=== PATIENT | female | born 1945 | race Caucasian/White ===

== ENCOUNTER → 2018-07-19 | Outpatient (CLI) | payer MEDICARE, MEDICAID | LOC: OD 16:04 | PROVIDERS: ATTEND Physician Assistant Medical | DX: N39.0 Urinary tract infection, site not specified (principal); N18.3 Chronic kidney disease, stage 3 (moderate) | CPT/HCPCS: 87086; 87088; 87186 ==

== ENCOUNTER 2019-07-14 14:09 | Inpatient (IN) | payer MEDICARE, MEDICAID ==
--- NOTE | 2019-07-14 14:48 | ER Document Report ---
ED Dizziness/Weakness - General Chief Complaint: Weakness Stated Complaint: WEAKNESS Time Seen by Provider: 07/14/19 14:22 Information source: Patient Notes: Mr. Hairston is a 74-year-old female with PMH of hypertension, hyperlipidemia, seizures, diabetes, depression and gout presenting to the ED for weakness. Patient states she has had some lightheadedness and headache over the past few days. No headache today. She also endorses a cough productive of yellow sputum over the past 2 to 3 days. No fevers but states that she is constantly cold with chills. No chest pain, abdominal pain, nausea, vomiting or diarrhea. She denies any dysuria or increased urinary frequency. No known ill contacts. TRAVEL OUTSIDE OF THE [place] IN LAST 30 DAYS: No - Related Data Allergies/Adverse Reactions: oxycodone HCl [From Percocet] Allergy (Verified 07/14/19 17:38) itching Past Medical History - Social History Smoking Status: Never Smoker Family History: Reviewed & Not Pertinent - Past Medical History Cardiac Medical History: Reports: Hx Hypercholesterolemia, Hx Hypertension Endocrine Medical History: Reports: Hx Diabetes Mellitus Type 2 GI Medical History: Reports: Hx Gastroesophageal Reflux Disease - Immunizations Hx Diphtheria, Pertussis, Tetanus Vaccination: Yes Review of Systems - Review of Systems Constitutional: See HPI EENT: No symptoms reported Cardiovascular: No symptoms reported Respiratory: No symptoms reported Gastrointestinal: No symptoms reported Genitourinary: No symptoms reported Female Genitourinary: See HPI Musculoskeletal: No symptoms reported Skin: No symptoms reported Hematologic/Lymphatic: No symptoms reported Neurological/Psychological: No symptoms reported -: Yes All other systems reviewed and negative Physical Exam - Vital signs Vitals: Temp Resp BP Pulse Ox 98.2 F 14 150/55 H 94 07/14/19 14:37 07/14/19 14:37 07/14/19 14:37 07/14/19 14:37 Interpretation: Normal - General General appearance: Appears well, Alert - HEENT Head: Normocephalic, Atraumatic Eyes: Normal Pupils: PERRL Mucous membranes: Moist - Respiratory Respiratory status: No respiratory distress Chest status: Nontender Breath sounds: Nonproductive cough, Rales - bibasilar Chest palpation: Normal - Cardiovascular Rhythm: Regular Heart sounds: Normal auscultation Murmur: No - Abdominal Inspection: Normal Distension: No distension Bowel sounds: Normal Tenderness: Nontender Organomegaly: No organomegaly - Back Back: Normal, Nontender - Extremities General upper extremity: Normal inspection, Nontender, Normal color, Normal ROM, Normal temperature General lower extremity: Normal inspection, Nontender, Normal color, Normal ROM, Normal temperature, Normal weight bearing. No: Janae's sign - Neurological Neuro grossly intact: Yes Cognition: Normal Orientation: AAOx4 Viraj Coma Scale Eye Opening: Spontaneous [place] Coma Scale Verbal: Oriented Viraj Coma Scale Motor: Obeys Commands [place] Coma Scale Total: 15 Speech: Normal Motor strength normal: LUE, RUE, LLE, RLE Sensory: Normal - Psychological Associated symptoms: Normal affect, Normal mood - Skin Skin Temperature: Warm Skin Moisture: Dry Skin Color: Normal Course - Re-evaluation Re-evalutation: Early well-appearing and nontoxic. Initial vitals within normal limits. Differential diagnosis includes pneumonia, UTI, electrolyte abnormality, dehydration 07/14/19 14:54 07/14/19 17:[address] Jessica Degroot to admit. 17:[address] Lopez, patient accepted to floor. Will see patient soon. - Vital Signs Vital signs: Temp Pulse Resp BP Pulse Ox 97.8 F 63 16 149/79 H 96 07/14/19 19:50 07/14/19 19:50 07/14/19 19:50 07/14/19 19:50 07/14/19 19:50 - Laboratory Result Diagrams: 07/14/19 13:28 07/14/19 13:28 Laboratory results interpreted by me: 07/14/19 07/14/19 07/14/19 13:28 13:28 13:28 RDW 17.6 H Chloride 97 L Carbon Dioxide 32 H BUN 32 H Creatinine 1.89 H Est GFR ( Amer) 31 L Est GFR (MDRD) Non-Af 26 L Glucose 267 H NT-Pro-B Natriuret Pep 2140 H Albumin 3.2 L Urine Protein Urine Blood Urine Nitrite Ur Leukocyte Esterase 07/14/19 15:00 RDW Chloride Carbon Dioxide BUN Creatinine Est GFR ( Amer) Est GFR (MDRD) Non-Af Glucose NT-Pro-B Natriuret Pep Albumin Urine Protein 100 H Urine Blood MODERATE H Urine Nitrite POSITIVE H Ur Leukocyte Esterase MODERATE H - EKG Interpretation by Me EKG shows normal: Sinus rhythm Rate: Normal Heart block present: 1st Degree Discharge - Discharge Clinical Impression: CASSY (acute kidney injury), Dehydration, Declining mobility UTI (urinary tract infection) Qualifiers: Urinary tract infection type: site unspecified Hematuria presence: without hematuria Qualified Code(s): N39.0 - Urinary tract infection, site not specified Condition: Fair Disposition: ADMITTED INPATIENT Admitting Provider: Jessica (Hospitalist) Unit Admitted: Medical Floor
[2019-07-14 14:56] LABS: ABSOLUTE EOSINOPHILS # (AUTO) 0.1 10^3/uL (0.0-0.6); ABSOLUTE LYMPHOCYTES (AUTO) 1.5 10^3/uL (0.5-4.7); ABSOLUTE MONOCYTES (AUTO) 0.9 10^3/uL (0.1-1.4); ABSOLUTE NEUT (AUTO) 6.7 10^3/uL (1.7-8.2); BASOPHILS % (AUTO) 0.3 % (0-2); EOSINOPHILS % (AUTO) 1.3 % (0-6); HEMATOCRIT 37.1 % (36.0-47.0); HEMOGLOBIN 12.2 g/dL (12.0-15.5); LYMPHOCYTES % (AUTO) 15.8 % (13-45); MEAN CORPUSCULAR HEMOGLOBIN 27.4 pg (27.0-33.4); MEAN CORPUSCULAR HGB CONC 32.9 g/dL (32.0-36.0); MEAN CORPUSCULAR VOLUME 83 fl (80-97); MONOCYTES % (AUTO) 9.8 % (3-13); PLATELET COUNT 276 10^3/uL (150-450); RED BLOOD COUNT 4.46 10^6/uL (3.72-5.28); RED CELL DISTRIBUTION WIDTH 17.6 % (11.5-14.0); SEGMENTED NEUTROPHILS % (AUTO) 72.8 % (42-78); TOTAL CELLS COUNTED % (AUTO) 100 %; WHITE BLOOD COUNT 9.2 10^3/uL (4.0-10.5)
[2019-07-14 15:11] LABS: INTERNATIONAL RATION (INR) 1.06; PROTHROMBIN TIME 13.8 SEC (11.4-15.4)
[2019-07-14 15:14] LABS: ALBUMIN 3.2 g/dL (3.5-5.0); ALKALINE PHOSPHATASE 83 U/L (38-126); ANION GAP 11 (5-19); ASPARTATE AMINO TRANSFERASE 23 U/L (14-36); BILIRUBIN,DIRECT 0.4 mg/dL (0.0-0.4); BILIRUBIN,TOTAL 0.4 mg/dL (0.2-1.3); BLOOD UREA NITROGEN 32 mg/dL (7-20); CARBON DIOXIDE 32 mmol/L (22-30); CHLORIDE 97 mmol/L (98-107); CREATINE KINASE 31 U/L (30-135); GLUCOSE 267 mg/dL (75-110); POTASSIUM 3.9 mmol/L (3.6-5.0); TOTAL PROTEIN 7.1 g/dL (6.3-8.2)
[2019-07-14 15:26] LABS: CREATINE KINASE MB 0.46 ng/mL (<4.55); NT PRO BNP 2140 pg/mL (<125); TROPONIN I < 0.012 ng/mL
[2019-07-14 15:43] LABS: APPEARANCE,URINE CLOUDY; BILIRUBIN,URINE NEGATIVE (NEGATIVE); COLOR,URINE AMBER; GLUCOSE, URINE NEGATIVE (NEGATIVE); KETONES,URINE NEGATIVE (NEGATIVE); LEUKOCYTE ESTERASE,URINE MODERATE (NEGATIVE); NITRITE,URINE POSITIVE (NEGATIVE); PROTEIN,URINE 100 mg/dL (NEGATIVE); URINE SPECIFIC GRAVITY 1.015; UROBILINOGEN,URINE NEGATIVE mg/dL (<2.0)
[2019-07-14 15:45] LABS: ADD MANUAL MICROSCOPIC YES
[2019-07-14 15:46] LABS: AMORPHOUS SEDIMENT,UR 1+; BACTERIA,URINE 1+ /HPF; RBC,URINE 0-1 /HPF
--- NOTE | 2019-07-14 15:53 | RADIOLOGY REPORT (SQ) ---
EXAM DESCRIPTION: CHEST 2 VIEWS COMPLETED DATE/TIME: 07/14/2019 3:43 pm REASON FOR STUDY: weakness, crackles at bilat bases COMPARISON: 08/21/2016 TECHNIQUE: Frontal and lateral radiographic views of the chest acquired. NUMBER OF VIEWS: Two view. LIMITATIONS: None. FINDINGS: LUNGS AND PLEURA: No pneumothorax. Mild interstitial prominence, basilar airspace opaciti es and small pleural effusions. MEDIASTINUM AND HILAR STRUCTURES: Stable. HEART AND VASCULAR STRUCTURES: Stable. BONES: No acute findings. HARDWARE: None in the chest. OTHER: No other significant finding. IMPRESSION: Mild interstitial prominence, basilar airspace opacities and small pleural effusions. TECHNICAL DOCUMENTATION: JOB ID: [id number] 2010 [employer]- All Rights Reserved Reading location - IP/workstation name: [email or web address])
--- NOTE | 2019-07-14 16:37 | EKG REPORT ---
SEVERITY:- BORDERLINE ECG - SINUS RHYTHM BORDERLINE T ABNORMALITIES, ANTERIOR LEADS : Confirmed by: Nabeel Li MD 14-Jul-2019 16:37:09
[2019-07-14] MEDS ORDERED: NORMAL SALINE 1000 ML 1,000 ML IV ONE (17:13)
[2019-07-14] MEDS ORDERED: CEFTRIAXONE INJ 1000 MG VIAL IV ONE (17:13)
[2019-07-14] MEDS ORDERED: MAG HYDROX/AL HYDROX/SIMETH SUSP 30 ML UDCUP PO PRN (18:26)
[2019-07-14] MEDS ORDERED: PROMETHAZINE HCL INJ 25 MG/1 ML VIAL IV PRN (18:26)
[2019-07-14] MEDS ORDERED: NORMAL SALINE 1000 ML 1,000 ML IV PRN (18:26)
[2019-07-14] MEDS ORDERED: DEXTROSE 40% GEL 15 GM TUBE PO PRN ×2 (18:37)
[2019-07-14] MEDS ORDERED: DEXTROSE 50%-WATER 25 GM/50 ML DISP.SYRIN IV PRN ×2 (18:37)
[2019-07-14] MEDS ORDERED: GLUCAGON,HUMAN RECOMB 1 MG INJ IM PRN (18:37)
[2019-07-14] MEDS ORDERED: AZITHROMYCIN INJ 500 MG VIAL IV PRN (19:03)
--- NOTE | 2019-07-14 19:03 | ADVANCED CARE ---
Attendance: Discussion was held at the bedside with the patient's sister and 2 of her nieces. Resuscitation Status: Full Code Discussion: The patient has been in a state of decline for the last several weeks. Her UA suggests infection and her chest x-ray suggests failure versus infection. They also report that the patient has been stumbling. She does have a shuffling gait for the past several weeks and tends to lean forward with her walker to the point where they must catch her before she falls. When I asked about CODE STATUS her sister (who would be the next relative in line to make the decision) stated that she could not make the decision. She asked her nieces to help with the decision. They did not care to make a decision at this time and by default made the patient full code. I explained the difference between full code, DNR and comfort measures. I reviewed what actually happens during resuscitation efforts. I discussed the fact that compressions typically break ribs and intubation can be very uncomfortable. We reviewed the patient's current quality of life. It is unfair to see the patient today and assess her quality of life over the last months or years. The did report to me that the patient and her sister were on a cruise to [facility] 4 weeks ago. I did point out that the state of decline can be slow and progressive or other can be an acute decompensation. I reviewed the ability of a living well to set certain parameters such as tracheostomy or not, long-term placement in a senior living facility and use of the PEG tube. The the patient's mother evidently had a PEG tube and the patient's sister remembers that as a very unpleasant situation. At the end of the discussion it was decided that the patient will be a full code for the time being. They would discuss the situation with other family members and try to come to a consensus tomorrow. I did mention that there is a blank copy of [place] living well/healthcare proxy in the admissions packet. I also pointed out that everyone in the room should consider completing sex document for themselves. Care Planning Goals: To determine an appropriate plan of care for this patient including parameters on aggressive care if she were to decline. Document(s) Completed: None Time Spent: 18 minutes
--- NOTE | 2019-07-14 19:06 | RADIOLOGY REPORT (SQ) ---
EXAM DESCRIPTION: VENOUS UNILATERAL LOWER COMPLETED DATE/TIME: 07/14/2019 6:46 pm REASON FOR STUDY: LLE swelling COMPARISON: None. TECHNIQUE: Dynamic and static rawls scale and color images acquired of the left leg venous system. Se lected spectral images acquired with additional compression and augmentation maneuvers. The contralat eral common femoral vein and saphenofemoral junction were also imaged. Images stored on PACS. LIMITATIONS: None. FINDINGS: COMMON FEMORAL: Normal phasicity, compression and augmentation. No visualized echogenic ma terial on rawls scale. No defects on color images. FEMORAL: Normal compression and augmentation. No visualized echogenic material on rawls scale. No defe cts on color images. POPLITEAL: Normal compression, augmentation. No visualized echogenic material on rawls scale. No defec ts on color images. CALF VESSELS: Normal compression, augmentation. No visualized echogenic material on rawls scale. No de fects on color images. GSV and SSV: Normal compression, augmentation. No visualized echogenic material on rawls scale. No def ects on color images. ANY DEEP VENOUS INSUFFICIENCY: Not evaluated. ANY EVIDENCE OF POPLITEAL CYST: No. OTHER: Left lower extremity subcutaneous soft tissue swelling. CONTRALATERAL COMMON FEMORAL VEIN AND SAPHENOFEMORAL JUNCTION: Normal phasicity, compression and augmentation. No visualized echogenic material on rawls scale. No de fects on color images. IMPRESSION: Left lower extremity soft tissue swelling without evidence of DVT or SVT. TECHNICAL DOCUMENTATION: JOB ID: [id number] [employer]- All Rights Reserved Reading location - IP/workstation name: [email or web address]
--- NOTE | 2019-07-14 19:19 | PDOC H&P ---
History of Present Illness Admission Date/PCP: 07/14/19 18:00 Patient complains of: Progressive weakness History of Present Illness: ROBBIN HERNÁNDEZ is a 74 year old female with a past medical history of diabetes mellitus type 2, stage III chronic kidney disease, hypertension, hypercholesterolemia, diabetic neuropathy as well as decreased vision likely related to diabetes. The family also reports hearing loss. The patient evidently was on a cruise to [facility] 4 weeks ago. The family states that since that time she seems to have declined in general. She has exhibited increasing weakness. She has a shuffling gait and the family observes hand tremors. Nils etimes at night she feels like she cannot breathe and asks her sister to turn the fan on. When the fan is on she feels better. Her gait, in addition to shuffling, exhibits a tendency to lean forward despite the walker. At times the family has to catch the patient before she falls. Patient reports that she has been very sleepy. When she speaks it feels like there is a thick tongue and her verbalization is not crisp. Her appetite has only been fair and the family reports that she chokes easily when she eats. In fact a Heimlich maneuver need to be performed several weeks ago. On evaluation the chest x-ray revealed bilateral infiltrates, interstitial prominence and pleural effusions. Ur inalysis suggested urinary tract infection. Unfortunately a urine culture was not ordered. The patient's serum creatinine is slightly greater than her baseline stage III kidney failure. She did not have an elevated white blood cell count and her glucose and brain natruretic peptide were elevated. IV fluids were started in the emergency department and 1 g of ceftriaxone was given. Lastly there was some asymmetric swelling with the left leg being greater than the right. There was some erythema on the left leg. Venous Doppler was ordered. It might also be stasis dermatitis. They have been treating an ulcer on the patient's left heel as well. The patient was referred to the hospital service for admission. Past Medical History Cardiac Medical History: Reports: Hyperlipidema, Hypertension Pulmonary Medical History: Reports: None EENT Medical History: Reports: Eyes - Possible diabetic retinopathy Neurological Medical History: Denies: Ischemic CVA, Migraine, Seizures Endocrine Medical History: Reports: Diabetes Mellitus Type 2 Renal/ Medical History: Reports: Chronic Kidney Disease Malignancy Medical History: Reports: None GI Medical History: Reports: Gastroesophageal Reflux Disease Psychiatric Medical History: Denies: Alcohol Dependency, Substance Abuse, Tobacco Dependency Traumatic Medical History: Reports: None Hematology: Denies: Anemia, Bleeding Tendencies, Heparin Induced Thrombocytopenia Infectious Medical History: Denies: Clostridium Difficile, Methicillin-Resistant Staph Aureus Past Surgical History Past Surgical History: Reports: Cholecystectomy, Hysterectomy, Other - Laser eye treatments Social History Information Source: Patient, Relative - Patient's sister and 2 nieces. Lives with: Family Smoking Status: Former Smoker Electronic Cigarette use?: No Frequency of Alcohol Use: None Hx Recreational Drug Use: No Drugs: None Hx Prescription Drug Abuse: No Past Social History Note: Patient is and has no children - Advance Directive Resuscitation Status: Full Code Surrogate healthcare decision maker:: The patient's sister would be the legal decision maker. The family is going to discuss CODE STATUS to come up with consensus. Family History Family History: CAD Parental Family History Reviewed: Yes Children Family History Reviewed: NA Sibling(s) Family History Reviewed.: Yes Medication/Allergy Home Medications: Aspirin/Dipyridamole [Aggrenox 25 mg/200 mg Capsule SA] 1 cap.sr PO BID 02/10/12 B Complex W-C No.20/Folic Acid [Renal Caps Softgel] 1 cap PO DAILY 08/21/16 Benztropine Mesylate [Cogentin 1 mg Tablet] 1 tab PO QHS #30 tab 08/21/16 Chlorthalidone [Chlorthalidone 25 mg Tablet] 0.5 tab PO DAILY 08/21/16 Febuxostat [Uloric 40 mg Tablet] 40 mg PO DAILY 08/21/16 Levetiracetam [Keppra] 250 mg PO BID #28 tablet 08/21/16 Metoprolol Tartrate 100 mg PO DAILY 08/21/16 Risperidone [Risperdal] 0.25 mg PO RTBID #28 tablet 08/21/16 Rosuvastatin Calcium [Crestor] 40 mg PO DAILY 08/21/16 Allergies/Adverse Reactions: oxycodone HCl [From Percocet] Allergy (Verified 07/14/19 17:38) itching Review of Systems Constitutional: PRESENT: fatigue, weakness. ABSENT: fever(s), headache(s) Eyes: PRESENT: visual disturbances Ears: PRESENT: hearing changes Nose, Mouth, and Throat: ABSENT: headache(s), mouth pain, sore throat Cardiovascular: PRESENT: dyspnea on exertion, edema. ABSENT: chest pain, palpitations Respiratory: PRESENT: dyspnea. ABSENT: cough, sputum Gastrointestinal: PRESENT: dysphagia. ABSENT: abdominal pain, coffee ground emesis, constipation, diarrhea, nausea, vomiting Genitourinary: PRESENT: other - Urinary incontinence. ABSENT: dysuria, hematuria Musculoskeletal: PRESENT: muscle weakness. ABSENT: deformity Integumentary: PRESENT: other - Left diabetic heel ulcer Neurological: PRESENT: abnormal gait, abnormal movements, abnormal speech, lack of coordination, tingling, tremor(s) Psychiatric: ABSENT: anxiety, depression, hallucinations Endocrine: ABSENT: cold intolerance, flushing, heat intolerance, menstrual abnormalities Hematologic/Lymphatic: ABSENT: easy bleeding, easy bruising, lymphadenopathy Allergic/Immunologic: ABSENT: seasonal rhinorrhea Physical Exam Vital Signs: Temp Pulse Resp BP Pulse Ox 98.2 F 14 174/86 H 96 07/14/19 17:01 07/14/19 18:57 07/14/19 18:57 07/14/19 18:57 Intake & Output 07/13/19 07/14/19 07/15/19 07:59 06:59 06:59 Weight 90.9 kg General appearance: PRESENT: cooperative, mild distress, obese, well-developed Head exam: PRESENT: atraumatic, normocephalic Eye exam: PRESENT: conjunctiva pink. ABSENT: scleral icterus Ear exam: PRESENT: normal external ear exam. ABSENT: bleeding, drainage Mouth exam: PRESENT: dry mucosa, tongue midline Neck exam: ABSENT: carotid bruit, lymphadenopathy, thyromegaly Respiratory exam: PRESENT: decreased breath sounds - At bases, rales - Lower lung perez, symmetrical, tachypnea. ABSENT: rhonchi, wheezes Cardiovascular exam: PRESENT: RRR, +S1, +S2 GI/Abdominal exam: PRESENT: diminished bowel sounds, soft. ABSENT: distended, tenderness Rectal exam: PRESENT: deferred Gentrourinary exam: ABSENT: indwelling catheter Extremities exam: PRESENT: other - There was swelling noted in the left leg. There is no pitting edema in the feet. The hands were puffy. Musculoskeletal exam: PRESENT: normal inspection. ABSENT: deformity Neurological exam: PRESENT: alert, awake, oriented to person, oriented to place, oriented to situation Psychiatric exam: PRESENT: flat affect. ABSENT: agitated, anxious Focused psych exam: ABSENT: delusional, restlessness Skin exam: PRESENT: dry, erythema - Distal left leg is red and warm to the touch, warm. ABSENT: jaundice, mottled, rash, skin tears Results Laboratory Results: 07/14/19 13:28 07/14/19 13:28 07/14/19 07/14/19 07/14/19 13:28 13:28 13:28 WBC 9.2 RBC 4.46 Hgb 12.2 Hct 37.1 MCV 83 MCH 27.4 MCHC 32.9 RDW 17.6 H Plt Count 276 Seg Neutrophils % 72.8 Sodium 140.0 Potassium 3.9 Chloride 97 L Carbon Dioxide 32 H Anion Gap 11 BUN 32 H Creatinine 1.89 H Est GFR ( Amer) 31 L Glucose 267 H Lactic Acid Calcium 9.0 Total Bilirubin 0.4 AST 23 Alkaline Phosphatase 83 Total Protein 7.1 Albumin 3.2 L TSH 0.89 Urine Color Urine Appearance Urine pH Ur Specific Noble Urine Protein Urine Glucose (UA) Urine Ketones Urine Blood Urine Nitrite Ur Leukocyte Esterase Ur Squamous Epith Cells 07/14/19 07/14/19 14:45 15:00 WBC RBC Hgb Hct MCV MCH MCHC RDW Plt Count Seg Neutrophils % Sodium Potassium Chloride Carbon Dioxide Anion Gap BUN Creatinine Est GFR ( Amer) Glucose Lactic Acid 0.9 Calcium Total Bilirubin AST Alkaline Phosphatase Total Protein Albumin TSH Urine Color BEATRIZ Urine Appearance CLOUDY Urine pH 5.0 Ur Specific Noble 1.015 Urine Protein 100 H Urine Glucose (UA) NEGATIVE Urine Ketones NEGATIVE Urine Blood MODERATE H Urine Nitrite POSITIVE H Ur Leukocyte Esterase MODERATE H Ur Squamous Epith Cells FEW 07/14/19 07/14/19 13:28 13:28 Creatine Kinase 31 CK-MB (CK-2) 0.46 Troponin I < 0.012 NT-Pro-B Natriuret Pep 2140 H Impressions: Chest X-Ray 07/14/19 14:36 IMPRESSION: Mild interstitial prominence, basilar airspace opacities and small pleural effusions. Assessment and Plan - Diagnosis (1) UTI (urinary tract infection) Qualifiers: Urinary tract infection type: site unspecified Hematuria presence: without hematuria Qualified Code(s): N39.0 - Urinary tract infection, site not specified Is this a current diagnosis for this admission?: Yes Plan: 07/14/2019-urinalysis suggested infection. I have ordered a urine culture. For the time being we will use ceftriaxone. (2) Acute renal failure superimposed on stage 3 chronic kidney disease Qualifiers: Acute renal failure type: unspecified Qualified Code(s): N17.9 - Acute kidney failure, unspecified; N18.3 - Chronic kidney disease, stage 3 (moderate) Is this a current diagnosis for this admission?: Yes Plan: 07/14/2019-the acute on chronic kidney disease could be due to the infection with renal tubular acidosis. The patient was not hypotensive. Blood cultures are pending to rule out bacteremia. I have ordered gentle fluids. She does have small pleural effusions, interstitial prominence and bilateral infiltrates and so I will proceed with care and monitor kidney function. (3) Pneumonia Qualifiers: Pneumonia type: aspiration pneumonia Laterality: bilateral Lung location: unspecified part of lung Is this a current diagnosis for this admission?: Yes Plan: 07/14/2019-with a history of choking with food and bilateral infiltrates aspiration would be potential source of infection. She was [place] a cruise ship several weeks ago. I did order a Legionella antigen study from the urine. She does not have a productive cough and therefore no sputum culture is available. She is on ceftriaxone and azithromycin for community-acquired pneumonia at this time. Pending further results the treatment plan may change. She is not hypoxic at this time. (4) Hypertension Qualifiers: Hypertension type: essential hypertension Qualified Code(s): I10 - Essential (primary) hypertension Is this a current diagnosis for this admission?: Yes Plan: 07/14/2019-we will continue the metoprolol and chlorthalidone. She may need more aggressive diuresis. Will monitor intake and output as well. (5) Hypercholesterolemia Is this a current diagnosis for this admission?: Yes Plan: 07/14/2019-continue statin therapy. We will use atorvastatin in place of rouvastatin. Lipid panel is ordered. (6) Diabetic ulcer of heel Qualifiers: Diabetes mellitus type: type 2 Laterality: left Non-pressure ulcer stage: unspecified non-pressure ulcer stage Qualified Code(s): E11.621 - Type 2 diabetes mellitus with foot ulcer; L97.429 - Non-pressure chronic ulcer of left heel and midfoot with unspecified severity Is this a current diagnosis for this admission?: Yes Plan: 07/14/2019-the patient had to urinate in the psychiatric technician assistant was present to perform venous ultrasound on the left leg. The patient's heel was painful as well. I will assess the stage of the ulcer tomorrow. For now Allevyn foam dressings have been ordered. (7) Diabetes mellitus type 2 in obese Is this a current diagnosis for this admission?: Yes Plan: 07/14/2019-utilize diabetic diet. Continue glimepiride and initiate Accu-Cheks with meals and at bedtime covered with Humalog sliding scale. (9) Diabetic retinopathy Qualifiers: Diabetes mellitus type: type 2 Diabetic retinopathy severity: with unspe cified retinopathy severity Diabetes mellitus macular edema: macular edema presence unspecified Laterality: bilateral Qualified Code(s): E11.319 - Type 2 diabetes mellitus with unspecified diabetic retinopathy without macular edema Is this a current diagnosis for this admission?: Yes Plan: 07/14/2019-family reports that the patient is almost blind from her retinopathy. Will need to take care getting her out of bed. Loss of vision could also be contributing to her poor gait. (10) Declining mobility Is this a current diagnosis for this admission?: Yes Plan: 07/14/2019-as noted above the patient's gait has declined. Family describes it as shuffling. They also describe progressive leaning forward over the walker to the point where they must grab her or she will fall. This could be a combination of neuropathy, retinopathy, weakness and imbalance. She had no resting tremor to suggest Parkinson's disease. Physical therapy has been ordered. (11) Dysphagia Qualifiers: Dysphagia type: unspecified Qualified Code(s): R13.10 - Dysphagia, unspecified Is this a current diagnosis for this admission?: Yes Plan: 07/14/2019-the patient's family reports choking when she is eating. They could not distinguish liquids versus solids. They did report that she required the Heimlich maneuver several weeks ago. I have asked speech therapy to assess the patient. (12) Neurocognitive disorder Is this a current diagnosis for this admission?: Yes Plan: 07/14/2019-the patient's family could not provide details. She is on Latuda and duloxetine. He could be depression or bipolar disorder. The patient's sister stated that she was put on the medicine because she was hearing voices. I will investigate further and request records from her psychiatrist office in the morning. - Plan Summary Summary: 07/14/2019-the patient will be admitted to the medical floor. We will continue her medication regimen with the addition of antibiotics to cover urinary tract infection and suspected pneumonia. Physical therapy and speech therapy have been ordered. She will be on a cardiac/diabetic diet. We will float her heels due to the diabetic heel ulcer. The family is discussing CODE STATUS when a consensus is achieved they will notify me. - Time Time Spent with patient: 35 or more minutes Medications reviewed and adjusted accordingly: Yes - Inpatient Certification Based on my medical assessment, after consideration of the patient's comorbidities, presenting symptoms, or acuity I expect that the services needed warrant INPATIENT care.: Yes I certify that my determination is in accordance with my understanding of Medicare's requirements for reasonable and necessary INPATIENT services [42 CFR 412.3e].: Yes Medical Necessity: Need For IV Fluids, Need for IV Antibiotics Post Hospital Care: D/C Technology Professional Documentation
[2019-07-14] MEDS: ASPIRIN/DIPYRIDAMOLE 25-200 MG 1 CAP.SR CPMP.12HR PO SCH (22:24)
[2019-07-14] MEDS: ATORVASTATIN CALCIUM 80 MG TABLET PO SCH (22:24)
[2019-07-14] MEDS: HEPARIN SOD (PORCINE) 5,000 UNIT/ML 1 ML VIAL SUBCUT SCH (22:25)
[2019-07-14] MEDS: INSULIN LISPRO 100 UNIT/ML 3 ML VIAL SUBCUT SCH (22:25)
[2019-07-14] MEDS ORDERED: AZITHROMYCIN INJ 500 MG VIAL IV ONE (22:44)
[2019-07-14] MEDS: AZITHROMYCIN 500 MG in DEXTROSE 5%-WATER 250 ML IV SCH (23:12)
[2019-07-15] MEDS: PANTOPRAZOLE SODIUM 40 MG TABLET.DR PO SCH (05:06)
[2019-07-15] MEDS: HEPARIN SOD (PORCINE) 5,000 UNIT/ML 1 ML VIAL SUBCUT SCH ×3 (05:06→21:50)
[2019-07-15 06:25] LABS: ABSOLUTE MONOCYTES (AUTO) 0.9 10^3/uL (0.1-1.4); ABSOLUTE NEUT (AUTO) 5.9 10^3/uL (1.7-8.2); HEMOGLOBIN 10.6 g/dL (12.0-15.5); RED BLOOD COUNT 3.92 10^6/uL (3.72-5.28); TOTAL CELLS COUNTED % (AUTO) 100 %; WHITE BLOOD COUNT 8.8 10^3/uL (4.0-10.5)
[2019-07-15 06:31] LABS: ABSOLUTE EOSINOPHILS # (AUTO) 0.1 10^3/uL (0.0-0.6); ABSOLUTE LYMPHOCYTES (AUTO) 1.7 10^3/uL (0.5-4.7); BASOPHILS % (AUTO) 0.5 % (0-2); EOSINOPHILS % (AUTO) 1.7 % (0-6); HEMATOCRIT 32.4 % (36.0-47.0); LYMPHOCYTES % (AUTO) 19.5 % (13-45); MEAN CORPUSCULAR HEMOGLOBIN 27.1 pg (27.0-33.4); MEAN CORPUSCULAR HGB CONC 32.8 g/dL (32.0-36.0); MEAN CORPUSCULAR VOLUME 83 fl (80-97); MONOCYTES % (AUTO) 10.8 % (3-13); PLATELET COUNT 275 10^3/uL (150-450); RED CELL DISTRIBUTION WIDTH 17.6 % (11.5-14.0); SEGMENTED NEUTROPHILS % (AUTO) 67.5 % (42-78)
[2019-07-15 06:42] LABS: ALBUMIN 2.6 g/dL (3.5-5.0); ANION GAP 6 (5-19); BLOOD UREA NITROGEN 28 mg/dL (7-20); CALCIUM 8.8 mg/dL (8.4-10.2); CARBON DIOXIDE 34 mmol/L (22-30); CHLORIDE 98 mmol/L (98-107); GLUCOSE 177 mg/dL (75-110); POTASSIUM 3.2 mmol/L (3.6-5.0); TRIGLYCERIDES 97 mg/dL (<150)
[2019-07-15 06:52] LABS: DIRECT LDL 36 mg/dL (<100)
[2019-07-15] MEDS: INSULIN LISPRO 100 UNIT/ML 3 ML VIAL SUBCUT SCH ×4 (08:27→21:50)
[2019-07-15] MEDS ORDERED: POTASSIUM CHLORIDE 10 MEQ CAPSULE.ER PO ONE (08:30)
[2019-07-15] MEDS ORDERED: CHLORTHALIDONE 25 MG TABLET PO SCH (10:00)
[2019-07-15] MEDS: PREGABALIN 75 MG CAPSULE PO SCH ×2 (10:02→17:16)
[2019-07-15] MEDS: DULOXETINE HCL 30 MG CAPSULE.DR PO SCH (10:02)
[2019-07-15] MEDS: METOPROLOL SUCCINATE 50 MG TAB.SR.24H PO SCH (10:02)
[2019-07-15] MEDS: DOCUSATE SODIUM 100 MG CAPSULE PO SCH ×2 (10:02→17:17)
[2019-07-15] MEDS: GLIMEPIRIDE 4 MG TABLET PO SCH (10:02)
[2019-07-15] MEDS: ASPIRIN/DIPYRIDAMOLE 25-200 MG 1 CAP.SR CPMP.12HR PO SCH ×2 (10:03→21:46)
[2019-07-15] MEDS: FEBUXOSTAT 40 MG TABLET PO SCH (10:03)
[2019-07-15] MEDS: LURASIDONE HCL 40 MG TABLET PO SCH ×2 (10:03→16:45)
[2019-07-15] MEDS: OXYBUTYNIN CHLORIDE 5 MG TABLET PO SCH (11:24)
[2019-07-15] MEDS ORDERED: PROMETHAZINE HCL INJ 25 MG/1 ML VIAL IV PRN (11:30)
--- NOTE | 2019-07-15 12:17 | PDOC PROGRESS REPORT ---
Subjective Progress Note for:: 07/15/19 Subjective:: The patient is resting comfortably in bed. She has no complaints. I do believe that she would be very hard pressed to complain about symptoms based on my encounter yesterday and discussions with the family. She is very hard of hearing and has poor vision. Clearly with developmental delay as answers are somewhat slow and simple. Reason For Visit: UTI,ACUTE ON CHRONIC KIDNEY INJURY,HYPERTENSION, Physical Exam Vital Signs: Temp Pulse Resp BP Pulse Ox 98.8 F 70 16 151/63 H 95 07/15/19 07:58 07/15/19 07:58 07/15/19 07:58 07/15/19 07:58 07/15/19 07:58 Intake & Output 07/14/19 07/15/19 07/16/19 06:59 06:59 06:59 Intake Total 1490 Balance 1490 Weight 90.9 kg General appearance: PRESENT: no acute distress, cooperative, hard of hearing, well-developed Head exam: PRESENT: atraumatic, normocephalic Eye exam: PRESENT: conjunctiva pink. ABSENT: scleral icterus Ear exam: PRESENT: normal external ear exam. ABSENT: bleeding, drainage Respiratory exam: PRESENT: decreased breath sounds - At bases, rhonchi - Faint rhonchi, symmetrical, unlabored. ABSENT: rales, tachypnea, wheezes Cardiovascular exam: PRESENT: RRR, +S1, +S2 GI/Abdominal exam: PRESENT: normal bowel sounds, soft. ABSENT: distended, guarding, tenderness Rectal exam: PRESENT: deferred Extremities exam: PRESENT: pedal edema. ABSENT: joint swelling Musculoskeletal exam: PRESENT: normal inspection. ABSENT: deformity Neurological exam: PRESENT: alert, awake, oriented to person, oriented to place, other - Answers to questions tend to be simple. Hard to know the depth of insight. Psychiatric exam: PRESENT: flat affect. ABSENT: agitated, anxious Skin exam: PRESENT: dry, warm. ABSENT: rash Results Laboratory Results: 07/15/19 05:33 07/15/19 05:33 07/14/19 07/14/19 07/14/19 13:28 13:28 13:28 WBC 9.2 RBC 4.46 Hgb 12.2 Hct 37.1 MCV 83 MCH 27.4 MCHC 32.9 RDW 17.6 H Plt Count 276 Seg Neutrophils % 72.8 Sodium 140.0 Potassium 3.9 Chloride 97 L Carbon Dioxide 32 H Anion Gap 11 BUN 32 H Creatinine 1.89 H Est GFR ( Amer) 31 L Glucose 267 H Lactic Acid Calcium 9.0 Phosphorus Magnesium Total Bilirubin 0.4 AST 23 Alkaline Phosphatase 83 Total Protein 7.1 Albumin 3.2 L Triglycerides Cholesterol LDL Cholesterol Direct VLDL Cholesterol HDL Cholesterol TSH 0.89 Urine Color Urine Appearance Urine pH Ur Specific [place] Urine Protein Urine Glucose (UA) Urine Ketones Urine Blood Urine Nitrite Ur Leukocyte Esterase Ur Squamous Epith Cells 07/14/19 07/14/19 07/15/19 14:45 15:00 05:33 WBC RBC Hgb Hct MCV MCH MCHC RDW Plt Count Seg Neutrophils % Sodium 138.2 Potassium 3.2 L Chloride 98 Carbon Dioxide 34 H Anion Gap 6 BUN 28 H Creatinine 1.65 H Est GFR ( Amer) 37 L Glucose 177 H Lactic Acid 0.9 Calcium 8.8 Phosphorus 4.0 Magnesium 1.8 Total Bilirubin AST Alkaline Phosphatase Total Protein Albumin 2.6 L Triglycerides 97 Cholesterol 68.90 LDL Cholesterol Direct 36 VLDL Cholesterol 19.0 HDL Cholesterol 16 L TSH Urine Color BEATRIZ Urine Appearance CLOUDY Urine pH 5.0 Ur Specific [place] 1.015 Urine Protein 100 H Urine Glucose (UA) NEGATIVE Urine Ketones NEGATIVE Urine Blood MODERATE H Urine Nitrite POSITIVE H Ur Leukocyte Esterase MODERATE H Ur Squamous Epith Cells FEW 07/15/19 05:33 WBC 8.8 RBC 3.92 Hgb 10.6 L Hct 32.4 L MCV 83 MCH 27.1 MCHC 32.8 RDW 17.6 H Plt Count 275 Seg Neutrophils % 67.5 Sodium Potassium Chloride Carbon Dioxide Anion Gap BUN Creatinine Est GFR ( Amer) Glucose Lactic Acid Calcium Phosphorus Magnesium Total Bilirubin AST Alkaline Phosphatase Total Protein Albumin Triglycerides Cholesterol LDL Cholesterol Direct VLDL Cholesterol HDL Cholesterol TSH Urine Color Urine Appearance Urine pH Ur Specific [place] Urine Protein Urine Glucose (UA) Urine Ketones Urine Blood Urine Nitrite Ur Leukocyte Esterase Ur Squamous Epith Cells 07/14/19 07/14/19 13:28 13:28 Creatine Kinase 31 CK-MB (CK-2) 0.46 Troponin I < 0.012 NT-Pro-B Natriuret Pep 2140 H Impressions: Chest X-Ray 07/14/19 14:36 IMPRESSION: Mild interstitial prominence, basilar airspace opacities and small pleural effusions. Venous Doppler Study 07/14/19 17:27 IMPRESSION: Left lower extremity soft tissue swelling without evidence of DVT or SVT. Assessment and Plan - Diagnosis (1) UTI (urinary tract infection) Qualifiers: Urinary tract infection type: site unspecified Hematuria presence: without hematuria Qualified Code(s): N39.0 - Urinary tract infection, site not specified Is this a current diagnosis for this admission?: Yes Plan: 07/14/2019-urinalysis suggested infection. I have ordered a urine culture. For the time being we will use ceftriaxone. 07/15/2019-initial culture results show gram-negative bacilli. We will continue current antibiotic therapy until final identification and sensitivity provided. (2) Acute renal failure superimposed on stage 3 chronic kidney disease Qualifiers: Acute renal failure type: unspecified Qualified Code(s): N17.9 - Acute kidney failure, unspecified; N18.3 - Chronic kidney disease, stage 3 (moderate) Is this a current diagnosis for this admission?: Yes Plan: 07/14/2019-the acute on chronic kidney disease could be due to the infection with renal tubular acidosis. The patient was not hypotensive. Blood cultures are pending to rule out bacteremia. I have ordered gentle fluids. She does have small pleural effusions, interstitial prominence and bilateral infiltrates and so I will proceed with care and monitor kidney function. 07/15/2019-creatinine is slightly better today. She is getting close to baseline. We will monitor intake and output as well. (3) Pneumonia Qualifiers: Pneumonia type: aspiration pneumonia Laterality: bilateral Lung location: unspecified part of lung Is this a current diagnosis for this admission?: Yes Plan: 07/14/2019-with a history of choking with food and bilateral infiltrates aspiration would be potential source of infection. She was [place] a cruise ship [place] weeks ago. I did order a Legionella antigen study from the urine. She does not have a productive cough and therefore no sputum culture is available. She is on ceftriaxone and azithromycin for community-acquired pneumonia at this time. Pending further results the treatment plan may change. She is not hypoxic at this time. 07/15/2019-speech therapy did see the patient. She feels that there is a reasonably safe swallow. Aspiration, although possible, does not likely appear to be the etiology. I was mistaken when obtaining the history and the patient states that she is afraid of water and in fact was not on the cruise to [facility]. Because she was on a cruise ship I did order Legionella antigen. We will continue the current antibiotic regimen at this time. (4) Hypertension Qualifiers: Hypertension type: essential hypertension Qualified Code(s): I10 - Essential (primary) hypertension Is this a current diagnosis for this admission?: Yes Plan: 07/14/2019-we will continue the metoprolol and chlorthalidone. She may need more aggressive diuresis. Will monitor intake and output as well. 07/15/2019-we will continue current medications. Blood pressure was slightly elevated today. I would like to monitor the pressure for 2 to 3 days before making any major changes in her medication regimen. (5) Hypercholesterolemia Is this a current diagnosis for this admission?: Yes Plan: 07/14/2019-continue statin therapy. We will use atorvastatin in place of rouvastatin. Lipid panel is ordered. 07/15/2019-continue statin therapy. Lipid panel reveals excellent control. Possibly may even consider decreasing statin therapy slightly. (6) Diabetic ulcer of heel Qualifiers: Diabetes mellitus type: type 2 Laterality: left Non-pressure ulcer stage: limited to breakdown of skin Qualified Code(s): E11.621 - Type 2 diabetes mellitus with foot ulcer; L97.421 - Non-pressure chronic ulcer of left heel and midfoot limited to breakdown of skin Is this a current diagnosis for this admission?: Yes Plan: 07/14/2019-the patient had to urinate in the technical communicator was present to perform venous ultrasound on the left leg. The patient's heel was painful as well. I will assess the stage of the ulcer tomorrow. For now Allevyn foam dressings have been ordered. 07/15/2019-the heel ulcer is slightly lateral. The tissue is darkly discolored. There is at least breakdown of the skin. There is likely deeper tissue damage but it is impossible to tell. At this point I will not debride the lesion further. We will continue conservative care. I will order Santyl applications to help remove some of the nonviable tissue. (7) Diabetes mellitus type 2 in obese Is this a current diagnosis for this admission?: Yes Plan: 07/14/2019-utilize diabetic diet. Continue glimepiride and initiate Accu-Cheks with meals and at bedtime covered with Humalog sliding scale. 07/15/2019-hemoglobin A1c was 9.6%. Continue current regimen. We may need to adjust her baseline regimen of glimepiride for better control. (8) Diabetic neuropathy Qualifiers: Diabetes mellitus type: type 2 Diabetes mellitus complication detail: d iabetic polyneuropathy Qualified Code(s): E11.42 - Type 2 diabetes mellitus with diabetic polyneuropathy Is this a current diagnosis for this admission?: Yes Plan: 07/15/2019-continue Lyrica. The patient is also on duloxetine. She may also be on this medication for depression. (9) Diabetic retinopathy Qualifiers: Diabetes mellitus type: type 2 Diabetic retinopathy severity: with unspecified retinopathy severity Diabetes mellitus macular edema: macular edema presence unspecified Laterality: bilateral Qualified Code(s): E11.319 - Type 2 diabetes mellitus with unspecified diabetic retinopathy without macular edema Is this a current diagnosis for this admission?: Yes Plan: 07/14/2019-family reports that the patient is almost blind from her retinopathy. Will need to take care getting her out of bed. Loss of vision could also be contributing to her poor gait. 07/15/2019-family reports that the patient has had multiple laser treatments. I believe she has maxed out on the therapy. Again tried to be in her visual field when communicating. (10) Declining mobility Is this a current diagnosis for this admission?: Yes Plan: 07/14/2019-as noted above the patient's gait has declined. Family describes it as shuffling. They also describe progressive leaning forward over the walker to the point where they must grab her or she will fall. This could be a combination of neuropathy, retinopathy, weakness and imbalance. She had no resting tremor to suggest Parkinson's disease. Physical therapy has been ordered. 07/15/2019-physical therapy will be evaluating the patient. (11) Dysphagia Qualifiers: Dysphagia type: oral phase Qualified Code(s): R13.11 - Dysphagia, oral phase Is this a current diagnosis for this admission?: Yes Plan: 07/14/2019-the patient's family reports choking when she is eating. They could not distinguish liquids versus solids. They did report that she required the Heimlich maneuver several weeks ago. I have asked speech therapy to assess the patient. 07/15/2019-speech therapy did see the patient. The dysphagia is most likely due to her edentulous state and not having dentures that fit properly. We are going to change the texture of her diet. There was no cough with thin liquids. We believe that with change in the texture of the diet she will do much better. (12) Neurocognitive disorder Is this a current diagnosis for this admission?: Yes Plan: 07/14/2019-the patient's family could not provide details. She is on Latuda and duloxetine. He could be depression or bipolar disorder. The patient's sister stated that she was put on the medicine because she was hearing voices. I will investigate further and request records from her psychiatrist office in the morning. 07/15/2019-we will try to get more details from the family. We will continue the Latuda and duloxetine for the time being. - Plan Summary Summary: 07/14/2019-the patient will be admitted to the medical floor. We will continue her medication regimen with the addition of antibiotics to cover urinary tract infection and suspected pneumonia. Physical therapy and speech therapy have b een ordered. She will be on a cardiac/diabetic diet. We will float her heels due to the diabetic heel ulcer. The family is discussing CODE STATUS when a consensus is achieved they will notify me. - Time Time Spent with patient: 15-24 minutes Medications reviewed and adjusted accordingly: Yes
[2019-07-15] MEDS: CEFTRIAXONE 1 GM/D5W RTU 1 GM/50 ML RTUPB IV SCH (17:17)
[2019-07-15] MEDS: COLLAGENASE CLOSTRIDIUM HIST. OINT 30 GM TP SCH (17:46)
[2019-07-15] MEDS: ACETAMINOPHEN 325 MG TABLET PO PRN (20:24)
[2019-07-15] MEDS: ATORVASTATIN CALCIUM 80 MG TABLET PO SCH (21:46)
[2019-07-15] MEDS: AZITHROMYCIN 500 MG in DEXTROSE 5%-WATER 250 ML IV SCH (21:47)
[2019-07-15] MEDS ORDERED: MORPHINE SULFATE 10 MG/ML INJ IV ONE (23:00)
[2019-07-16] MEDS: ACETAMINOPHEN 325 MG TABLET PO PRN ×2 (04:05→10:40)
[2019-07-16 05:41] LABS: ABSOLUTE BASOPHILS # (AUTO) 0.1 10^3/uL (0.0-0.2); ABSOLUTE EOSINOPHILS # (AUTO) 0.2 10^3/uL (0.0-0.6); ABSOLUTE LYMPHOCYTES (AUTO) 2.7 10^3/uL (0.5-4.7); ABSOLUTE MONOCYTES (AUTO) 1.1 10^3/uL (0.1-1.4); ABSOLUTE NEUT (AUTO) 5.1 10^3/uL (1.7-8.2); BASOPHILS % (AUTO) 0.7 % (0-2); EOSINOPHILS % (AUTO) 2.1 % (0-6); HEMOGLOBIN 11.2 g/dL (12.0-15.5); LYMPHOCYTES % (AUTO) 29.4 % (13-45); MEAN CORPUSCULAR HEMOGLOBIN 27.4 pg (27.0-33.4); MEAN CORPUSCULAR VOLUME 83 fl (80-97); PLATELET COUNT 283 10^3/uL (150-450); RED CELL DISTRIBUTION WIDTH 17.8 % (11.5-14.0); SEGMENTED NEUTROPHILS % (AUTO) 55.8 % (42-78); TOTAL CELLS COUNTED % (AUTO) 100 %; WHITE BLOOD COUNT 9.2 10^3/uL (4.0-10.5)
[2019-07-16] MEDS: PANTOPRAZOLE SODIUM 40 MG TABLET.DR PO SCH (06:03)
[2019-07-16] MEDS: HEPARIN SOD (PORCINE) 5,000 UNIT/ML 1 ML VIAL SUBCUT SCH ×3 (06:03→22:36)
[2019-07-16 06:34] LABS: ALBUMIN 2.6 g/dL (3.5-5.0); ANION GAP 6 (5-19); BLOOD UREA NITROGEN 27 mg/dL (7-20); CALCIUM 8.9 mg/dL (8.4-10.2); CARBON DIOXIDE 35 mmol/L (22-30); CHLORIDE 101 mmol/L (98-107); GLUCOSE 111 mg/dL (75-110); PHOSPHORUS 4.1 mg/dL (2.5-4.5); POTASSIUM 3.6 mmol/L (3.6-5.0)
[2019-07-16] MEDS: INSULIN LISPRO 100 UNIT/ML 3 ML VIAL SUBCUT SCH ×4 (08:35→22:36)
[2019-07-16] MEDS: LURASIDONE HCL 40 MG TABLET PO SCH ×2 (08:43→18:30)
[2019-07-16] MEDS ORDERED: COLLAGENASE CLOSTRIDIUM HIST. OINT 30 GM TP SCH (10:00)
[2019-07-16] MEDS: COLLAGENASE CLOSTRIDIUM HIST. OINT 30 GM TP SCH (10:35)
[2019-07-16] MEDS: DULOXETINE HCL 30 MG CAPSULE.DR PO SCH (10:36)
[2019-07-16] MEDS: PREGABALIN 75 MG CAPSULE PO SCH ×2 (10:36→18:31)
[2019-07-16] MEDS: METOPROLOL SUCCINATE 50 MG TAB.SR.24H PO SCH (10:37)
[2019-07-16] MEDS: AMLODIPINE BESYLATE 10 MG TABLET PO SCH (10:37)
[2019-07-16] MEDS: FEBUXOSTAT 40 MG TABLET PO SCH (10:37)
[2019-07-16] MEDS: DOCUSATE SODIUM 100 MG CAPSULE PO SCH ×2 (10:38→18:30)
[2019-07-16] MEDS: ASPIRIN/DIPYRIDAMOLE 25-200 MG 1 CAP.SR CPMP.12HR PO SCH ×2 (10:38→22:36)
[2019-07-16] MEDS: OXYBUTYNIN CHLORIDE 5 MG TABLET PO SCH (10:38)
[2019-07-16] MEDS: POTASSIUM CHLORIDE 10 MEQ CAPSULE.ER PO SCH (10:38)
[2019-07-16] MEDS: GLIMEPIRIDE 4 MG TABLET PO SCH (10:39)
--- NOTE | 2019-07-16 10:49 | RADIOLOGY REPORT (SQ) ---
EXAM DESCRIPTION: CHEST SINGLE VIEW COMPLETED DATE/TIME: 07/16/2019 10:27 am REASON FOR STUDY: assess for congestion COMPARISON: 07/14/2019 EXAM PARAMETERS: NUMBER OF VIEWS: One view. TECHNIQUE: Single frontal radiographic view of the chest acquired. RADIATION DOSE: NA LIMITATIONS: None. FINDINGS: LUNGS AND PLEURA: Minimal ill-defined left retrocardiac opacities. No dense consolidation . No masses or pneumothorax. No pleural effusion. No edema. MEDIASTINUM AND HILAR STRUCTURES: No masses. Contour normal. HEART AND VASCULAR STRUCTURES: Heart normal in size. Aortic atherosclerosis. BONES: No acute findings. HARDWARE: None in the chest. OTHER: No other significant finding. IMPRESSION: Minimal ill-defined left retrocardiac opacity possibly atelectasis or developing infecti on, stable. No dense consolidation. No significant effusion or overt edema. TECHNICAL DOCUMENTATION: JOB ID: [id number] [employer]- All Rights Reserved Reading location - IP/workstation name: [email or web address]
--- NOTE | 2019-07-16 13:27 | PDOC PROGRESS REPORT ---
Subjective Progress Note for:: 07/16/19 Subjective:: This is 74-year-old female who initially presented with weakness and was admitted for UTI, acute on chronic renal failure and possible pneumonia. No acute event overnight. Patient denies acute complaints. Blood pressures running in the 170 systolic. Creatinine slightly trended up today. Urine culture is growing gram-negative rods. Reason For Visit: UTI,ACUTE ON CHRONIC KIDNEY INJURY,HYPERTENSION, Physical Exam Vital Signs: Temp Pulse Resp BP Pulse Ox 97.6 F 59 L 17 181/61 H 97 07/16/19 07:25 07/16/19 07:25 07/16/19 07:25 07/16/19 07:25 07/16/19 07:25 Intake & Output 07/15/19 07/16/19 07/17/19 06:59 06:59 06:59 Intake Total 1490 780 Balance 1490 780 Weight 200 lb 6.403 oz 202 lb 13.204 oz General appearance: PRESENT: no acute distress, well-developed, well-nourished Head exam: PRESENT: atraumatic, normocephalic Eye exam: PRESENT: conjunctiva pink, EOMI, PERRLA. ABSENT: scleral icterus Ear exam: PRESENT: normal external ear exam Mouth exam: PRESENT: moist, tongue midline Neck exam: ABSENT: carotid bruit, JVD, lymphadenopathy, thyromegaly Respiratory exam: ABSENT: rales, rhonchi, wheezes Cardiovascular exam: PRESENT: RRR. ABSENT: diastolic murmur, rubs, systolic murmur Pulses: PRESENT: normal dorsalis pedis pul GI/Abdominal exam: PRESENT: normal bowel sounds, soft. ABSENT: distended, guarding, mass, organolmegaly, rebound, tenderness Rectal exam: PRESENT: deferred Neurological exam: PRESENT: alert, awake, oriented to person, oriented to place, CN II-XII grossly intact. ABSENT: motor sensory deficit Results Laboratory Results: 07/16/19 04:14 07/16/19 04:14 07/16/19 07/16/19 04:14 04:14 WBC 9.2 RBC 4.10 Hgb 11.2 L Hct 34.0 L MCV 83 MCH 27.4 MCHC 33.0 RDW 17.8 H Plt Count 283 Seg Neutrophils % 55.8 Sodium 142.4 Potassium 3.6 Chloride 101 Carbon Dioxide 35 H Anion Gap 6 BUN 27 H Creatinine 1.92 H Est GFR ( Amer) 31 L Glucose 111 H Calcium 8.9 Phosphorus 4.1 Magnesium 1.7 Albumin 2.6 L 07/14/19 07/14/19 13:28 13:28 Creatine Kinase 31 CK-MB (CK-2) 0.46 Troponin I < 0.012 NT-Pro-B Natriuret Pep 2140 H Impressions: Chest X-Ray 07/14/19 14:36 IMPRESSION: Mild interstitial prominence, basilar airspace opacities and small pleural effusions. Venous Doppler Study 07/14/19 17:27 IMPRESSION: Left lower extremity soft tissue swelling without evidence of DVT or SVT. Assessment and Plan - Diagnosis (1) UTI (urinary tract infection) Qualifiers: Urinary tract infection type: site unspecified Hematuria presence: without hematuria Qualified Code(s): N39.0 - Urinary tract infection, site not specified Is this a current diagnosis for this admission?: Yes Plan: Urine culture is growing gram-negative rods. Continue Rocephin. (2) Acute renal failure superimposed on stage 3 chronic kidney disease Qualifiers: Acute renal failure type: unspecified Qualified Code(s): N17.9 - Acute kidney failure, unspecified; N18.3 - Chronic kidney disease, stage 3 (moderate) Is this a current diagnosis for this admission?: Yes Plan: Creatinine slightly trended up to 1.9 today from 1.6. Switch chlorthalidone to amlodipine. Her first chest x-ray shows possible mild pulmonary congestion. Repeat chest x-ray. Will restart on gentle hydration pending chest x-ray results. (3) Diabetic ulcer of heel Qualifiers: Diabetes mellitus type: type 2 Laterality: left Non-pressure ulcer stage: limited to breakdown of skin Qualified Code(s): E11.621 - Type 2 diabetes mellitus with foot ulcer; L97.421 - Non-pressure chronic ulcer of left heel and midfoot limited to breakdown of skin Is this a current diagnosis for this admission?: Yes Plan: Continue daily wound care. (4) Hypertension Qualifiers: Hypertension type: essential hypertension Qualified Code(s): I10 - Essential (primary) hypertension Is this a current diagnosis for this admission?: Yes Plan: Continue metoprolol. Switch chlorthalidone to amlodipine. (5) Pneumonia Qualifiers: Pneumonia type: aspiration pneumonia Laterality: bilateral Lung location: unspecified part of lung Is this a current diagnosis for this admission?: Yes Plan: Continue Rocephin. There was initial concern for aspiration pneumonia due to her swallowing issues. She was evaluated by speech therapy. Her swallowing issues were more deemed to be related to her edentulous state. - Time Time Spent with patient: 25-34 minutes
[2019-07-16] MEDS: NYSTATIN TOPICAL POWDER 15 GM TP SCH ×2 (14:46→22:37)
--- NOTE | 2019-07-16 14:49 | XCELERA REPORT ---
[address] [address] Transthoracic Echocardiogram Report Name: ROBBIN HERNÁNDEZ Age: 74 yrs Gender: Female : 1945 Patient Status: Inpatient Patient Location: [address] [place], [place] [address] Study Date: 07/15/2019 02:37 PM Height: 62 in Weight: 200 lb BSA: 1.9 m2 Procedure: A two-dimensional transthoracic echocardiogram with color flow and Doppler was performed. The study was technically difficult with many images being suboptimal in quality. Reason For Study: Suspect heart failure History: Heart failure. Ordering Physician: ORLANDO GU Performed By: Rosy Salazar Interpretation Summary The left ventricle is normal in size. There is normal left ventricular wall thickness. LV EF is > than 60% Left ventricular systolic function is normal. Doppler measurements suggest impaired left ventricular relaxation, which is associated with grade I/IV or mild diastolic dysfunction The left ventricular wall motion is normal. There is no thrombus. Cannot assess ASD,VSD,or PFO. The right ventricle is grossly normal size. The right ventricle is not well visualized secondary to technical limitations The right atrium is normal. The left atrial size is normal. There is no evidence of mitral valve prolapse. There is no vegetation seen on the mitral valve. There is no mitral valve stenosis. There is a trace amount of mitral regurgitation There is no aortic valvular vegetation. There is no aortic valve stenosis There is no LVOT obstruction. No aortic regurgitation is present. There is no tricuspid stenosis. There is a trace amount of tricuspid regurgitation Right ventricular systolic pressure is normal. RVSP is 30 mm of Hg , with RA mean of 10. There is no pulmonic valvular stenosis. There is no pulmonic valvular regurgitation. The aortic root is not well visualized but is probably normal size. The inferior vena cava was not visualized There is no pericardial effusion. MMode/2D Measurements & Calculations RVDd: 2.9 cm LVIDd: 4.5 cm FS: 37.4 % Ao root diam: 2.4 cm IVSd: 0.98 cm LVIDs: 2.8 cm EDV(Teich): 90.4 ml Ao root area: 4.4 cm2 LVPWd: 1.1 cm ESV(Teich): 29.4 ml LA dimension: 3.5 cm EF(Teich): 67.5 % Doppler Measurements & Calculations MV E max rosangela: MV P1/2t max rosangela: Ao V2 max: LV V1 max P.6 cm/sec 104.6 cm/sec 72.4 cm/sec 3.7 mmHg MV A max rosangela: MV P1/2t: 94.3 msec Ao max P.1 mmHgLV V1 max: 127.8 cm/sec MVA(P1/2t): 2.3 cm2 95.4 cm/sec MV E/A: 0.82 MV dec slope: 325.0 cm/sec2 MV dec time: 0.32 sec PA V2 max: TR max rosangela: MV P1/2t-pr_phl: 78.0 cm/sec 223.0 cm/sec 94.3 msec PA max P.4 mmHg TR max P.9 mmHg Left Ventricle The left ventricle is normal in size. There is normal left ventricular wall thickness. LV EF is > than 60%. Left ventricular systolic function is normal. Doppler measurements suggest impaired left ventricular relaxation, which is associated with grade I/IV or mild diastolic dysfunction. The left ventricular wall motion is normal. There is no thrombus. Cannot assess ASD,VSD,or PFO. Right Ventricle The right ventricle is grossly normal size. The right ventricle is not well visualized secondary to technical limitations. Atria The right atrium is normal. The left atrial size is normal. Mitral Valve There is no evidence of mitral valve prolapse. There is no vegetation seen on the mitral valve. There is no mitral valve stenosis. There is a trace amount of mitral regurgitation. Aortic Valve There is no aortic valvular vegetation. There is no aortic valve stenosis. There is no LVOT obstruction. No aortic regurgitation is present. Tricuspid Valve There is no tricuspid stenosis. There is a trace amount of tricuspid regurgitation. Right ventricular systolic pressure is normal. RVSP is 30 mm of Hg , with RA mean of 10. Pulmonic Valve There is no pulmonic valvular stenosis. There is no pulmonic valvular regurgitation. Great Vessels The aortic root is not well visualized but is probably normal size. The inferior vena cava was not visualized. Effusions There is no pericardial effusion. : ORLANDO GU Lakshmi
[2019-07-16] MEDS: CEFTRIAXONE 1 GM/D5W RTU 1 GM/50 ML RTUPB IV SCH (18:41)
[2019-07-16] MEDS: AZITHROMYCIN 500 MG in DEXTROSE 5%-WATER 250 ML IV SCH (22:35)
[2019-07-16] MEDS: ATORVASTATIN CALCIUM 80 MG TABLET PO SCH (22:35)
[2019-07-17] MEDS: HEPARIN SOD (PORCINE) 5,000 UNIT/ML 1 ML VIAL SUBCUT SCH ×3 (06:02→21:59)
[2019-07-17] MEDS: NYSTATIN TOPICAL POWDER 15 GM TP SCH ×3 (06:02→21:58)
[2019-07-17] MEDS: PANTOPRAZOLE SODIUM 40 MG TABLET.DR PO SCH (06:02)
[2019-07-17 06:41] LABS: ABSOLUTE EOSINOPHILS # (AUTO) 0.2 10^3/uL (0.0-0.6); ABSOLUTE LYMPHOCYTES (AUTO) 1.9 10^3/uL (0.5-4.7); ABSOLUTE MONOCYTES (AUTO) 0.7 10^3/uL (0.1-1.4); ABSOLUTE NEUT (AUTO) 4.2 10^3/uL (1.7-8.2); BASOPHILS % (AUTO) 0.7 % (0-2); EOSINOPHILS % (AUTO) 2.3 % (0-6); HEMATOCRIT 33.7 % (36.0-47.0); HEMOGLOBIN 11.1 g/dL (12.0-15.5); LYMPHOCYTES % (AUTO) 27.2 % (13-45); MEAN CORPUSCULAR HEMOGLOBIN 27.2 pg (27.0-33.4); MEAN CORPUSCULAR HGB CONC 32.9 g/dL (32.0-36.0); MEAN CORPUSCULAR VOLUME 83 fl (80-97); MONOCYTES % (AUTO) 9.6 % (3-13); PLATELET COUNT 292 10^3/uL (150-450); RED BLOOD COUNT 4.08 10^6/uL (3.72-5.28); RED CELL DISTRIBUTION WIDTH 17.6 % (11.5-14.0); SEGMENTED NEUTROPHILS % (AUTO) 60.2 % (42-78); TOTAL CELLS COUNTED % (AUTO) 100 %
[2019-07-17 07:06] LABS: ALBUMIN 2.6 g/dL (3.5-5.0); ANION GAP 10 (5-19); BLOOD UREA NITROGEN 26 mg/dL (7-20); CALCIUM 8.7 mg/dL (8.4-10.2); CARBON DIOXIDE 31 mmol/L (22-30); CHLORIDE 103 mmol/L (98-107); GLUCOSE 84 mg/dL (75-110); PHOSPHORUS 4.6 mg/dL (2.5-4.5); POTASSIUM 3.8 mmol/L (3.6-5.0)
[2019-07-17] MEDS: INSULIN LISPRO 100 UNIT/ML 3 ML VIAL SUBCUT SCH ×4 (08:45→21:59)
[2019-07-17] MEDS: COLLAGENASE CLOSTRIDIUM HIST. OINT 30 GM TP SCH (09:09)
[2019-07-17] MEDS: METOPROLOL SUCCINATE 50 MG TAB.SR.24H PO SCH (09:09)
[2019-07-17] MEDS: PREGABALIN 75 MG CAPSULE PO SCH ×2 (09:10→17:00)
[2019-07-17] MEDS: FEBUXOSTAT 40 MG TABLET PO SCH (09:10)
[2019-07-17] MEDS: DULOXETINE HCL 30 MG CAPSULE.DR PO SCH (09:10)
[2019-07-17] MEDS: ASPIRIN/DIPYRIDAMOLE 25-200 MG 1 CAP.SR CPMP.12HR PO SCH ×2 (09:10→21:57)
[2019-07-17] MEDS: POTASSIUM CHLORIDE 10 MEQ CAPSULE.ER PO SCH (09:10)
[2019-07-17] MEDS: OXYBUTYNIN CHLORIDE 5 MG TABLET PO SCH (09:10)
[2019-07-17] MEDS: DOCUSATE SODIUM 100 MG CAPSULE PO SCH ×2 (09:10→17:00)
[2019-07-17] MEDS: AMLODIPINE BESYLATE 10 MG TABLET PO SCH (09:10)
[2019-07-17] MEDS: LURASIDONE HCL 40 MG TABLET PO SCH ×2 (09:11→16:58)
[2019-07-17] MEDS: GLIMEPIRIDE 4 MG TABLET PO SCH (09:11)
[2019-07-17] MEDS: ACETAMINOPHEN 325 MG TABLET PO PRN ×2 (10:35→21:57)
--- NOTE | 2019-07-17 16:34 | PDOC PROGRESS REPORT ---
Subjective Progress Note for:: 07/17/19 Subjective:: This is 74-year-old female who initially presented with weakness and was admitted for UTI, acute on chronic renal failure and possible pneumonia. 07/16: Patient denies acute complaints. Blood pressures running in the 170 systolic. Creatinine slightly trended up today. Urine culture is growing gram- negative rods. 07/17: No acute event overnight. Blood pressures have improved. She denies acute complaints. She was evaluated by physical therapy, required some as sistance but did fairly well using a walker. Plan is possible discharge with home health and home PT soon however patient's family/sister could not be contacted in the past 2 days. Discussed with discharge planning may need assistance from APS. Reason For Visit: UTI,ACUTE ON CHRONIC KIDNEY INJURY,HYPERTENSION, Physical Exam Vital Signs: Temp Pulse Resp BP Pulse Ox 98.4 F 67 20 145/59 H 95 07/17/19 11:34 07/17/19 11:34 07/17/19 11:34 07/17/19 11:34 07/17/19 11:34 Intake & Output 07/16/19 07/17/19 07/18/19 06:59 06:59 06:59 Intake Total 780 1479 722 Output Total 1400 400 Balance 780 79 322 Weight 202 lb 13.204 oz 208 lb 12.444 oz General appearance: PRESENT: no acute distress, well-developed, well-nourished Head exam: PRESENT: atraumatic, normocephalic Eye exam: PRESENT: conjunctiva pink, EOMI, PERRLA. ABSENT: scleral icterus Ear exam: PRESENT: normal external ear exam Mouth exam: PRESENT: moist, tongue midline Neck exam: ABSENT: carotid bruit, JVD, lymphadenopathy, thyromegaly Respiratory exam: PRESENT: clear to auscultation leobardo. ABSENT: rales, rhonchi, wheezes Cardiovascular exam: PRESENT: RRR. ABSENT: diastolic murmur, rubs, systolic murmur Pulses: PRESENT: normal dorsalis pedis pul GI/Abdominal exam: PRESENT: normal bowel sounds, soft. ABSENT: distended, guarding, mass, organolmegaly, rebound, tenderness Rectal exam: PRESENT: deferred Neurological exam: PRESENT: alert, awake, oriented to person, oriented to place, CN II-XII grossly intact. ABSENT: motor sensory deficit Results Laboratory Results: 07/17/19 06:15 07/17/19 06:15 07/17/19 07/17/19 06:15 06:15 WBC 7.0 RBC 4.08 Hgb 11.1 L Hct 33.7 L MCV 83 MCH 27.2 MCHC 32.9 RDW 17.6 H Plt Count 292 Seg Neutrophils % 60.2 Sodium 144.0 Potassium 3.8 Chloride 103 Carbon Dioxide 31 H Anion Gap 10 BUN 26 H Creatinine 1.60 H Est GFR ( Amer) 38 L Glucose 84 Calcium 8.7 Phosphorus 4.6 H Magnesium 1.7 Albumin 2.6 L 07/14/19 15:00 Catheterized Urine Legionella Urinary Antigen - Final 07/14/19 15:00 Catheterized Urine Urine Culture - Final Escherichia Coli 07/14/19 07/14/19 13:28 13:28 Creatine Kinase 31 CK-MB (CK-2) 0.46 Troponin I < 0.012 NT-Pro-B Natriuret Pep 2140 H Impressions: Venous Doppler Study 07/14/19 17:27 IMPRESSION: Left lower extremity soft tissue swelling without evidence of DVT or SVT. Chest X-Ray 07/16/19 09:15 IMPRESSION: Minimal ill-defined left retrocardiac opacity possibly atelectasis or developing infection, stable. No dense consolidation. No significant effusion or overt edema. Assessment and Plan - Diagnosis (1) UTI (urinary tract infection) Qualifiers: Urinary tract infection type: site unspecified Hematuria presence: without hematuria Qualified Code(s): N39.0 - Urinary tract infection, site not specifi ed Is this a current diagnosis for this admission?: Yes Plan: Urine culture grew E. coli. Continue Rocephin. (2) Acute renal failure superimposed on stage 3 chronic kidney disease Qualifiers: Acute renal failure type: unspecified Qualified Code(s): N17.9 - Acute kidney failure, unspecified; N18.3 - Chronic kidney disease, stage 3 (moderate) Is this a current diagnosis for this admission?: Yes Plan: 07/16: Creatinine slightly trended up to 1.9 today from 1.6. Switch chlorthalidone to amlodipine. Her first chest x-ray shows possible mild pulmonary congestion. Repeat chest x-ray. Will restart on gentle hydration pending chest x-ray results. 07/17: Crea improved down to 1.6 from 1.9. (3) Diabetic ulcer of heel Qualifiers: Diabetes mellitus type: type 2 Laterality: left Non-pressure ulcer stage: limited to breakdown of skin Qualified Code(s): E11.621 - Type 2 diabetes mellitus with foot ulcer; L97.421 - Non-pressure chronic ulcer of left heel and midfoot limited to breakdown of skin Is this a current diagnosis for this admission?: Yes Plan: Continue daily wound care. (4) Hypertension Qualifiers: Hypertension type: essential hypertension Qualified Code(s): I10 - Essential (primary) hypertension Is this a current diagnosis for this admission?: Yes Plan: Continue metoprolol. Switched chlorthalidone to amlodipine. (5) Pneumonia Qualifiers: Pneumonia type: aspiration pneumonia Laterality: bilateral Lung location: unspecified part of lung Is this a current diagnosis for this admission?: Yes Plan: Continue Rocephin. There was initial concern for aspiration pneumonia due to her swallowing issues. She was evaluated by speech therapy. Her swallowing issues were more deemed to be related to her edentulous state. - Time Time Spent with patient: 25-34 minutes
[2019-07-17] MEDS: CEFTRIAXONE 1 GM/D5W RTU 1 GM/50 ML RTUPB IV SCH (17:00)
[2019-07-17] MEDS: AZITHROMYCIN 500 MG in DEXTROSE 5%-WATER 250 ML IV SCH (21:56)
[2019-07-17] MEDS: ATORVASTATIN CALCIUM 80 MG TABLET PO SCH (21:57)
[2019-07-18] MEDS: HEPARIN SOD (PORCINE) 5,000 UNIT/ML 1 ML VIAL SUBCUT SCH ×3 (06:48→21:53)
[2019-07-18] MEDS: NYSTATIN TOPICAL POWDER 15 GM TP SCH ×3 (06:49→21:52)
[2019-07-18] MEDS: PANTOPRAZOLE SODIUM 40 MG TABLET.DR PO SCH (06:51)
[2019-07-18] MEDS: INSULIN LISPRO 100 UNIT/ML 3 ML VIAL SUBCUT SCH ×4 (08:12→22:07)
[2019-07-18] MEDS: LURASIDONE HCL 40 MG TABLET PO SCH ×2 (08:41→17:07)
[2019-07-18] MEDS: AMLODIPINE BESYLATE 10 MG TABLET PO SCH (09:25)
[2019-07-18] MEDS: POTASSIUM CHLORIDE 10 MEQ CAPSULE.ER PO SCH (09:25)
[2019-07-18] MEDS: METOPROLOL SUCCINATE 50 MG TAB.SR.24H PO SCH (09:25)
[2019-07-18] MEDS: ASPIRIN/DIPYRIDAMOLE 25-200 MG 1 CAP.SR CPMP.12HR PO SCH ×2 (09:25→21:51)
[2019-07-18] MEDS: COLLAGENASE CLOSTRIDIUM HIST. OINT 30 GM TP SCH (09:25)
[2019-07-18] MEDS: GLIMEPIRIDE 4 MG TABLET PO SCH (09:25)
[2019-07-18] MEDS: DOCUSATE SODIUM 100 MG CAPSULE PO SCH ×2 (09:26→17:07)
[2019-07-18] MEDS: PREGABALIN 75 MG CAPSULE PO SCH ×2 (09:26→17:07)
[2019-07-18] MEDS: DULOXETINE HCL 30 MG CAPSULE.DR PO SCH (09:26)
[2019-07-18] MEDS: FEBUXOSTAT 40 MG TABLET PO SCH (09:26)
[2019-07-18] MEDS: OXYBUTYNIN CHLORIDE 5 MG TABLET PO SCH (09:26)
[2019-07-18] MEDS: CEFTRIAXONE 1 GM/D5W RTU 1 GM/50 ML RTUPB IV SCH (17:07)
--- NOTE | 2019-07-18 17:10 | PDOC PROGRESS REPORT ---
Subjective Progress Note for:: 07/18/19 Subjective:: This is 74-year-old female who initially presented with weakness and was admitted for UTI, acute on chronic renal failure and possible pneumonia. 07/16: Patient denies acute complaints. Blood pressures running in the 170 systolic. Creatinine slightly trended up today. Urine culture is growing gram- negative rods. 07/17: Blood pressures have improved. She denies acute complaints. She was evaluated by physical therapy, required some assistance but did fairly well using a walker. Plan is possible discharge with home health and home PT soon however patient's family/sister could not be contacted in the past 2 days. Discussed with discharge planning may need assistance from APS. 07/18: No acute event overnight. Denies acute complaints. Patient will be going to [facility]. Awaiting placement. Reason For Visit: UTI,ACUTE ON CHRONIC KIDNEY INJURY,HYPERTENSION, Physical Exam Vital Signs: Temp Pulse Resp BP Pulse Ox 98.3 F 59 L 19 169/61 H 95 07/18/19 07:49 07/18/19 07:49 07/18/19 07:49 07/18/19 07:49 07/18/19 07:49 Intake & Output 07/17/19 07/18/19 07/19/19 06:59 06:59 06:59 Intake Total 1479 2046 Output Total 1400 1650 Balance 79 396 Weight 208 lb 12.444 oz 208 lb 5.389 oz General appearance: PRESENT: no acute distress, well-developed, well-nourished Head exam: PRESENT: atraumatic, normocephalic Eye exam: PRESENT: conjunctiva pink, EOMI, PERRLA. ABSENT: scleral icterus Ear exam: PRESENT: normal external ear exam Mouth exam: PRESENT: moist, tongue midline Neck exam: ABSENT: carotid bruit, JVD, lymphadenopathy, thyromegaly Respiratory exam: PRESENT: clear to auscultation leobardo. ABSENT: rales, rhonchi, wheezes Cardiovascular exam: PRESENT: RRR. ABSENT: diastolic murmur, rubs, systolic murmur Pulses: PRESENT: normal dorsalis pedis pul GI/Abdominal exam: PRESENT: normal bowel sounds, soft. ABSENT: distended, guarding, mass, organolmegaly, rebound, tenderness Rectal exam: PRESENT: deferred Extremities exam: PRESENT: full ROM. ABSENT: calf tenderness, clubbing, pedal edema Neurological exam: PRESENT: alert, awake, oriented to person, oriented to place, CN II-XII grossly intact. ABSENT: motor sensory deficit Results Laboratory Results: 07/17/19 06:15 07/17/19 06:15 07/14/19 15:00 Catheterized Urine Legionella Urinary Antigen - Final 07/14/19 07/14/19 13:28 13:28 Creatine Kinase 31 CK-MB (CK-2) 0.46 Troponin I < 0.012 NT-Pro-B Natriuret Pep 2140 H Impressions: Venous Doppler Study 07/14/19 17:27 IMPRESSION: Left lower extremity soft tissue swelling without evidence of DVT or SVT. Chest X-Ray 07/16/19 09:15 IMPRESSION: Minimal ill-defined left retrocardiac opacity possibly atelectasis or developing infection, stable. No dense consolidation. No significant effusion or overt edema. Assessment and Plan - Diagnosis (1) UTI (urinary tract infection) Qualifiers: Urinary tract infection type: site unspecified Hematuria presence: without hematuria Qualified Code(s): N39.0 - Urinary tract infection, site not specified Is this a current diagnosis for this admission?: Yes Plan: Urine culture grew E. coli. Continue Rocephin. (2) Acute renal failure superimposed on stage 3 chronic kidney disease Qualifiers: Acute renal failure type: unspecified Qualified Code(s): N17.9 - Acute kidney failure, unspecified; N18.3 - Chronic kidney disease, stage 3 (moderate) Is this a current diagnosis for this admission?: Yes Plan: 07/16: Creatinine slightly trended up to 1.9 today from 1.6. Switch chlorthalidone to amlodipine. Her first chest x-ray shows possible mild pulmonary congestion. Repeat chest x-ray. Will restart on gentle hydration pending chest x-ray results. 07/17: Crea improved down to 1.6 from 1.9. (3) Diabetic ulcer of heel Qualifiers: Diabetes mellitus type: type 2 Laterality: left Non-pressure ulcer stage: limited to breakdown of skin Qualified Code(s): E11.621 - Type 2 diabetes mellitus with foot ulcer; L97.421 - Non-pressure chronic ulcer of left heel and midfoot limited to breakdown of skin Is this a current diagnosis for this admission?: Yes Plan: Continue daily wound care. (4) Hypertension Qualifiers: Hypertension type: essential hypertension Qualified Code(s): I10 - Essential (primary) hypertension Is this a current diagnosis for this admission?: Yes Plan: Continue metoprolol. Switched chlorthalidone to amlodipine. (5) Pneumonia Qualifiers: Pneumonia type: aspiration pneumonia Laterality: bilateral Lung location: unspecified part of lung Is this a current diagnosis for this admission?: Yes Plan: Continue Rocephin. There was initial concern for aspiration pneumonia due to her swallowing issues. She was evaluated by speech therapy. Her swallowing issues were more deemed to be related to her edentulous state. - Time Time Spent with patient: 15-24 minutes
[2019-07-18 18:04] LABS: ANION GAP 9 (5-19); BLOOD UREA NITROGEN 25 mg/dL (7-20); CALCIUM 8.7 mg/dL (8.4-10.2); CARBON DIOXIDE 30 mmol/L (22-30); CHLORIDE 99 mmol/L (98-107); GLUCOSE 305 mg/dL (75-110); POTASSIUM 4.7 mmol/L (3.6-5.0)
[2019-07-18] MEDS: ACETAMINOPHEN 325 MG TABLET PO PRN (21:51)
[2019-07-18] MEDS: ATORVASTATIN CALCIUM 80 MG TABLET PO SCH (21:52)
[2019-07-18] MEDS: AZITHROMYCIN 500 MG in DEXTROSE 5%-WATER 250 ML IV SCH (21:52)
[2019-07-19] MEDS: PANTOPRAZOLE SODIUM 40 MG TABLET.DR PO SCH (05:46)
[2019-07-19] MEDS: NYSTATIN TOPICAL POWDER 15 GM TP SCH ×2 (05:46→15:09)
[2019-07-19] MEDS: HEPARIN SOD (PORCINE) 5,000 UNIT/ML 1 ML VIAL SUBCUT SCH ×2 (05:46→15:07)
[2019-07-19] MEDS: INSULIN LISPRO 100 UNIT/ML 3 ML VIAL SUBCUT SCH ×3 (08:30→16:26)
[2019-07-19] MEDS: LURASIDONE HCL 40 MG TABLET PO SCH ×2 (08:33→16:29)
[2019-07-19] MEDS: COLLAGENASE CLOSTRIDIUM HIST. OINT 30 GM TP SCH (11:31)
[2019-07-19] MEDS: METOPROLOL SUCCINATE 50 MG TAB.SR.24H PO SCH (11:31)
[2019-07-19] MEDS: ASPIRIN/DIPYRIDAMOLE 25-200 MG 1 CAP.SR CPMP.12HR PO SCH (11:32)
[2019-07-19] MEDS: POTASSIUM CHLORIDE 10 MEQ CAPSULE.ER PO SCH (11:32)
[2019-07-19] MEDS: DULOXETINE HCL 30 MG CAPSULE.DR PO SCH (11:32)
[2019-07-19] MEDS: GLIMEPIRIDE 4 MG TABLET PO SCH (11:32)
[2019-07-19] MEDS: PREGABALIN 75 MG CAPSULE PO SCH (11:32)
[2019-07-19] MEDS: AMLODIPINE BESYLATE 10 MG TABLET PO SCH (11:32)
[2019-07-19] MEDS: FEBUXOSTAT 40 MG TABLET PO SCH (11:33)
[2019-07-19] MEDS: DOCUSATE SODIUM 100 MG CAPSULE PO SCH (11:33)
[2019-07-19] MEDS: OXYBUTYNIN CHLORIDE 5 MG TABLET PO SCH (11:33)
--- NOTE | 2019-07-19 11:36 | PDOC TRANSFER SUMMARY ---
Impression - Admit/DC Date/PCP Admission Date/Primary Care Provider: 07/14/19 18:00 Discharge Date: 07/19/19 - Discharge Diagnosis (1) UTI (urinary tract infection) Is this a current diagnosis for this admission?: Yes (2) Acute renal failure superimposed on stage 3 chronic kidney disease Is this a current diagnosis for this admission?: Yes (3) Diabetic ulcer of heel Is this a current diagnosis for this admission?: Yes (4) Hypertension Is this a current diagnosis for this admission?: Yes (5) Pneumonia Is this a current diagnosis for this admission?: Yes - Additional Information Resuscitation Status: Full Code Referrals: MARITA FITZGERALD PA-C [[employer]IED HEALTH PROFESSIONAL] - Follow up as needed Prescriptions: Amoxicillin/Potassium Clav [Augmentin 500-125 Tablet] 1 each PO BID 3 Days #6 tablet Amlodipine Besylate [Norvasc 10 mg Tablet] 10 mg PO DAILY #30 tablet Home Medications: Aspirin/Dipyridamole [Aspirin-Dipyridam ER 25-200 mg] 1 each PO BID 07/15/19 B Complex W-C No.20/Folic Acid [Renal Caps Softgel] 1 mg PO BID 07/15/19 Duloxetine HCl [Cymbalta] 60 mg PO DAILY 07/15/19 Febuxostat [Uloric 40 mg Tablet] 40 mg PO DAILY 07/15/19 Glimepiride [Amaryl] 4 mg PO QAM 07/15/19 Insulin Degludec [Tresiba] 15 unit SQ DAILY 07/15/19 Lurasidone HCl [Latuda 40 mg Tablet] 20 mg PO BID 07/15/19 Metoprolol Succinate [Toprol XL 100 mg Tablet] 100 mg PO DAILY 07/15/19 Omeprazole Magnesium [Prilosec Otc] 20 mg PO BID 07/15/19 Oxybutynin Chloride [Oxybutynin Chloride ER] 5 mg PO DAILY 07/15/19 Pregabalin [Lyrica 75 mg Capsule] 75 mg PO Q12 07/15/19 Rosuvastatin Calcium [Crestor] 40 mg PO DAILY 07/15/19 Tramadol HCl [Ultram 50 mg Tablet] 50 mg PO BIDP PRN 07/15/19 Trazodone HCl [Desyrel 50 mg Tablet] 50 mg PO HSP PRN 11/04/19 Amlodipine Besylate [Norvasc 10 mg Tablet] 10 mg PO DAILY #30 tablet 07/19/19 Amoxicillin/Potassium Clav [Augmentin 500-125 Tablet] 1 each PO BID 3 Days #6 tablet 07/19/19 History of Present Illiness History of Present Illness: Admitting hospitalist's H&P: ROBBIN HERNÁNDEZ is a 74 year old female with a past medical history of diabetes mellitus type 2, stage III chronic kidney disease, hypertension, hypercholesterolemia, diabetic neuropathy as well as decreased vision likely related to diabetes. The family also reports hearing loss. The patient evidently was on a cruise to [place] 4 weeks ago. The family states that since that time she seems to have declined in general. She has exhibited increasing weakness. She has a shuffling gait and the family observes hand tremors. Sometimes at night she feels like she cannot breathe and asks her sister to turn the fan on. When the fan is on she feels better. Her gait, in addition to shuffling, exhibits a tendency to lean forward despite the walker. At times the family has to catch the patient before she falls. Patient reports that she has been very sleepy. When she speaks it feels like there is a thick tongue and her verbalization is not crisp. Her appetite has only been fair and the family reports that she chokes easily when she eats. In fact a Heimlich maneuver need to be performed several weeks ago. On evaluation the chest x-ray revealed bilateral infiltrates, interstitial prominence and pleural effusions. Urinalysis suggested urinary tract infection. Unfortunately a urine culture was not ordered. The patient's serum creatinine is slightly greater than her baseline stage III kidney failure. She did not have an elevated white blood cell count and her glucose and brain natruretic peptide were elevated. IV fluids were started in the emergency department and 1 g of ceftriaxone was given. Lastly there was some asymmetric swelling with the left leg being greater than the right. Hospital Course Hospital Course: This is 74-year-old female who initially presented with weakness and was admitted for UTI, acute on chronic renal failure and possible pneumonia. She was stared on IV antibiotics and IV fluids. She did respond well to treatments. Urine culture grew E. coli. Her creatine also trended down. she will be discharged on Augmentin. She will be discharged to [facility]. Physical Exam Vital Signs: Temp Pulse Resp BP Pulse Ox 98.4 F 70 18 132/46 H 94 07/19/19 07:54 07/19/19 07:54 07/19/19 07:54 07/19/19 07:54 07/19/19 07:54 Intake & Output 07/18/19 07/19/19 07/20/19 06:59 06:59 06:59 Intake Total 2046 2184 Output Total 1650 4020 Balance 396 -1836 Weight 208 lb 5.389 oz 209 lb 3.499 oz General appearance: PRESENT: no acute distress, well-developed, well-nourished Head exam: PRESENT: atraumatic, normocephalic Eye exam: PRESENT: conjunctiva pink, EOMI, PERRLA. ABSENT: scleral icterus Mouth exam: PRESENT: moist, tongue midline Neck exam: ABSENT: carotid bruit, JVD, lymphadenopathy, thyromegaly Respiratory exam: PRESENT: clear to auscultation leobardo. ABSENT: rales, rhonchi, wheezes Cardiovascular exam: PRESENT: RRR. ABSENT: diastolic murmur, rubs, systolic murmur Pulses: PRESENT: normal dorsalis pedis pul GI/Abdominal exam: PRESENT: normal bowel sounds, soft. ABSENT: distended, guarding, mass, organolmegaly, rebound, tenderness Rectal exam: PRESENT: deferred Extremities exam: PRESENT: full ROM. ABSENT: calf tenderness, clubbing, pedal edema Neurological exam: PRESENT: alert, awake, oriented to person, oriented to place, CN II-XII grossly intact. ABSENT: motor sensory deficit Psychiatric exam: PRESENT: appropriate affect, normal mood. ABSENT: homicidal ideation, suicidal ideation Results Laboratory Results: WBC 7.0 10^3/uL (4.0-10.5) 07/17/19 06:15 RBC 4.08 10^6/uL (3.72-5.28) 07/17/19 06:15 Hgb 11.1 g/dL (12.0-15.5) L 07/17/19 06:15 Hct 33.7 % (36.0-47.0) L 07/17/19 06:15 MCV 83 fl (80-97) 07/17/19 06:15 MCH 27.2 pg (27.0-33.4) 07/17/19 06:15 MCHC 32.9 g/dL (32.0-36.0) 07/17/19 06:15 RDW 17.6 % (11.5-14.0) H 07/17/19 06:15 Plt Count 292 10^3/uL (150-450) 07/17/19 06:15 Lymph % (Auto) 27.2 % (13-45) 07/17/19 06:15 [place] % (Auto) 9.6 % (3-13) 07/17/19 06:15 Eos % (Auto) 2.3 % (0-6) 07/17/19 06:15 Baso % (Auto) 0.7 % (0-2) 07/17/19 06:15 Absolute Neuts (auto) 4.2 10^3/uL (1.7-8.2) 07/17/19 06:15 Absolute Lymphs (auto) 1.9 10^3/uL (0.5-4.7) 07/17/19 06:15 Absolute Monos (auto) 0.7 10^3/uL (0.1-1.4) 07/17/19 06:15 Absolute Eos (auto) 0.2 10^3/uL (0.0-0.6) 07/17/19 06:15 Absolute Basos (auto) 0.0 10^3/uL (0.0-0.2) 07/17/19 06:15 Seg Neutrophils % 60.2 % (42-78) 07/17/19 06:15 PT 13.8 SEC (11.4-15.4) 07/14/19 13:28 INR 1.06 07/14/19 13:28 Sodium 138.4 mmol/L (137-145) 07/18/19 17:21 Potassium 4.7 mmol/L (3.6-5.0) 07/18/19 17:21 Chloride 99 mmol/L (98-107) 07/18/19 17:21 Carbon Dioxide 30 mmol/L (22-30) 07/18/19 17:21 Anion Gap 9 (5-19) 07/18/19 17:21 BUN 25 mg/dL (7-20) H 07/18/19 17:21 Creatinine 1.55 mg/dL (0.52-1.25) H 07/18/19 17:21 Est GFR ( Amer) 40 (>60) L 07/18/19 17:21 Est GFR (MDRD) Non-Af 33 (>60) L 07/18/19 17:21 Glucose 305 mg/dL (75-110) H 07/18/19 17:21 POC Glucose 127 mg/dL (70-110) H 07/19/19 06:10 Hemoglobin A1c % 9.6 % (4.7-6.0) H 07/15/19 05:33 Lactic Acid 0.9 mmol/L (0.7-2.1) 07/14/19 14:45 Calcium 8.7 mg/dL (8.4-10.2) 07/18/19 17:21 Phosphorus 4.6 mg/dL (2.5-4.5) H 07/17/19 06:15 Magnesium 1.7 mg/dL (1.6-2.3) 07/17/19 06:15 Total Bilirubin 0.4 mg/dL (0.2-1.3) 07/14/19 13:28 Direct Bilirubin 0.4 mg/dL (0.0-0.4) 07/14/19 13:28 Neonat Total Bilirubin Not Reportable 07/14/19 13:28 Neonat Direct Bilirubin Not Reportable 07/14/19 13:28 Neonat Indirect Bili Not Reportable 07/14/19 13:28 AST 23 U/L (14-36) 07/14/19 13:28 ALT 20 U/L (<35) 07/14/19 13:28 Alkaline Phosphatase 83 U/L (38-126) 07/14/19 13:28 Creatine Kinase 31 U/L (30-135) 07/14/19 13:28 CK-MB (CK-2) 0.46 ng/mL (<4.55) 07/14/19 13:28 Troponin I < 0.012 ng/mL 07/14/19 13:28 NT-Pro-B Natriuret Pep 2140 pg/mL (<125) H 07/14/19 13:28 Total Protein 7.1 g/dL (6.3-8.2) 07/14/19 13:28 Albumin 2.6 g/dL (3.5-5.0) L 07/17/19 06:15 Triglycerides 97 mg/dL (<150) 07/15/19 05:33 Cholesterol 68.90 mg/dL (0-200) 07/15/19 05:33 LDL Cholesterol Direct 36 mg/dL (<100) 07/15/19 05:33 VLDL Cholesterol 19.0 mg/dL (10-31) 07/15/19 05:33 HDL Cholesterol 16 mg/dL (>40) L 07/15/19 05:33 TSH 0.89 uIU/mL (0.47-4.68) 07/14/19 13:28 Urine Color BEATRIZ 07/14/19 15:00 Urine Appearance CLOUDY 07/14/19 15:00 Urine pH 5.0 (5.0-9.0) 07/14/19 15:00 Ur Specific [place] 1.015 07/14/19 15:00 Urine Protein 100 mg/dL (NEGATIVE) H 07/14/19 15:00 Urine Glucose (UA) NEGATIVE mg/dL (NEGATIVE) 07/14/19 15:00 Urine Ketones NEGATIVE mg/dL (NEGATIVE) 07/14/19 15:00 Urine Blood MODERATE (NEGATIVE) H 07/14/19 15:00 Urine Nitrite POSITIVE (NEGATIVE) H 07/14/19 15:00 Urine Bilirubin NEGATIVE (NEGATIVE) 07/14/19 15:00 Urine Urobilinogen NEGATIVE mg/dL (<2.0) 07/14/19 15:00 Ur Leukocyte Esterase MODERATE (NEGATIVE) H 07/14/19 15:00 Urine RBC 0-1 /HPF 07/14/19 15:00 Urine WBC 10-20 /HPF 07/14/19 15:00 Ur Squamous Epith Cells FEW /HPF 07/14/19 15:00 Amorphous Sediment 1+ 07/14/19 15:00 Urine Bacteria 1+ /HPF 07/14/19 15:00 Urine Ascorbic Acid NEGATIVE (NEGATIVE) 07/14/19 15:00 07/14/19 13:28 CK-MB (CK-2) 0.46 Troponin I < 0.012 NT-Pro-B Natriuret Pep 2140 H Impressions: Chest X-Ray 07/14/19 14:36 IMPRESSION: Mild interstitial prominence, basilar airspace opacities and small pleural effusions. Venous Doppler Study 07/14/19 17:27 IMPRESSION: Left lower extremity soft tissue swelling without evidence of DVT or SVT. Chest X-Ray 07/16/19 09:15 IMPRESSION: Minimal ill-defined left retrocardiac opacity possibly atelectasis or developing infection, stable. No dense consolidation. No significant effusion or overt edema. Stroke Is this a Stroke Patient?: No Acute Heart Failure - Is this a Heart Failure Patient?: No
[2019-07-19 13:53] VITALS: BP 144/64
== END 2019-07-19 16:58 | DRG 682 ==
LOC: ER 14:09 → EH 18:00 → 4W 19:45 → 4N 07-17 06:41
PROVIDERS: ADMIT Hospitalist; ATTEND Internal Medicine
DX: N17.9 Acute kidney failure, unspecified (principal); J18.9 Pneumonia, unspecified organism; N39.0 Urinary tract infection, site not specified; L97.429 Non-pressure chronic ulcer of left heel and midfoot with unspecified severity; L97.421 Non-pressure chronic ulcer of left heel and midfoot limited to breakdown of skin; E86.0 Dehydration; E11.621 Type 2 diabetes mellitus with foot ulcer; I12.9 Hypertensive chronic kidney disease with stage 1 through stage 4 chronic kidney disease, or unspecified chronic kidney disease; E11.22 Type 2 diabetes mellitus with diabetic chronic kidney disease; E11.319 Type 2 diabetes mellitus with unspecified diabetic retinopathy without macular edema; B96.20 Unspecified Escherichia coli [E. coli] as the cause of diseases classified elsewhere; E11.42 Type 2 diabetes mellitus with diabetic polyneuropathy; R13.11 Dysphagia, oral phase; N18.3 Chronic kidney disease, stage 3 (moderate); R41.9 Unspecified symptoms and signs involving cognitive functions and awareness; E78.5 Hyperlipidemia, unspecified; E78.00 Pure hypercholesterolemia, unspecified; K21.9 Gastro-esophageal reflux disease without esophagitis; Z90.49 Acquired absence of other specified parts of digestive tract; Z90.710 Acquired absence of both cervix and uterus; Z87.891 Personal history of nicotine dependence; Z74.09 Other reduced mobility
CPT/HCPCS: 36415; 71045; 71046; 80048; 80053; 80061; 80069; 81001; 82550; 82553; 82962; 83036; 83605; 83735; 83880; 84443; 84484; 85025; 85610; 87040; 87086; 87088; 87186; 93005; 93010; 93306; 93971; 94799; 96365; 99285; J0456; J0696; J1644; J1815; J2270; J3490; J7030; J7060

== ENCOUNTER 2019-08-09 00:46 | Observation (INO) | payer MEDICARE, MEDICAID ==
[2019-08-09 01:05] LABS: ABSOLUTE EOSINOPHILS # (AUTO) 0.2 10^3/uL (0.0-0.6); ABSOLUTE MONOCYTES (AUTO) 0.8 10^3/uL (0.1-1.4); ABSOLUTE NEUT (AUTO) 3.7 10^3/uL (1.7-8.2); BASOPHILS % (AUTO) 0.5 % (0-2); EOSINOPHILS % (AUTO) 3.1 % (0-6); HEMATOCRIT 29.4 % (36.0-47.0); HEMOGLOBIN 9.6 g/dL (12.0-15.5); LYMPHOCYTES % (AUTO) 29.4 % (13-45); MEAN CORPUSCULAR HEMOGLOBIN 28.2 pg (27.0-33.4); MEAN CORPUSCULAR HGB CONC 32.8 g/dL (32.0-36.0); MEAN CORPUSCULAR VOLUME 86 fl (80-97); MONOCYTES % (AUTO) 11.8 % (3-13); PLATELET COUNT 189 10^3/uL (150-450); RED BLOOD COUNT 3.42 10^6/uL (3.72-5.28); RED CELL DISTRIBUTION WIDTH 19.1 % (11.5-14.0); SEGMENTED NEUTROPHILS % (AUTO) 55.2 % (42-78); TOTAL CELLS COUNTED % (AUTO) 100 %; WHITE BLOOD COUNT 6.7 10^3/uL (4.0-10.5)
[2019-08-09 01:26] LABS: ALBUMIN 2.9 g/dL (3.5-5.0); ALKALINE PHOSPHATASE 85 U/L (38-126); ANION GAP 7 (5-19); ASPARTATE AMINO TRANSFERASE 18 U/L (14-36); BILIRUBIN,DIRECT 0.2 mg/dL (0.0-0.4); BILIRUBIN,TOTAL 0.2 mg/dL (0.2-1.3); BLOOD UREA NITROGEN 42 mg/dL (7-20); CALCIUM 8.8 mg/dL (8.4-10.2); CARBON DIOXIDE 27 mmol/L (22-30); CHLORIDE 105 mmol/L (98-107); GLUCOSE 375 mg/dL (75-110); POTASSIUM 4.5 mmol/L (3.6-5.0); TOTAL PROTEIN 6.4 g/dL (6.3-8.2)
--- NOTE | 2019-08-09 02:17 | RADIOLOGY REPORT (SQ) ---
CLINICAL HISTORY: wheezing, piting edema COMPARISON: 07/14/2019. TECHNIQUE: XR CHEST 1 VIEW 08/09/2019 1:00 AM FLATWORK TIER FINDINGS: Cardiac silhouette is normal in size. Lungs are clear without consolidation, atelectasis, mass or edema. There is no pleural effusion. There is no pneumothorax. There are no acute osseous findings. IMPRESSION: Clear lungs.
[2019-08-09] MEDS ORDERED: IPRATROPIUM/ALBUTEROL 0.5-2.5 MG/3 ML AMPUL NEB ONE (02:24)
[2019-08-09] MEDS ORDERED: FUROSEMIDE INJ/PF 20 MG/2 ML SDV IV ONE (03:04)
[2019-08-09 03:05] LABS: APPEARANCE,URINE SLIGHTLY-CLOUDY; BILIRUBIN,URINE NEGATIVE (NEGATIVE); COLOR,URINE YELLOW; GLUCOSE, URINE >=500 mg/dL (NEGATIVE); KETONES,URINE NEGATIVE (NEGATIVE); PROTEIN,URINE 30 mg/dL (NEGATIVE); URINE SPECIFIC GRAVITY 1.012; UROBILINOGEN,URINE NEGATIVE mg/dL (<2.0)
--- NOTE | 2019-08-09 04:20 | ER Document Report ---
ED General - General Chief Complaint: Breathing Difficulty Stated Complaint: DIFFICULTY BREATHING Time Seen by Provider: 08/09/19 01:02 Mode of Arrival: Medic Information source: Patient, Relative Notes: This is a 74-year-old female presenting to the emergency department with complaint of increased swelling to her bilateral lower extremities and increasing shortness of breath. Patient is staying at [facility] for rehab. Her family states that she has been there for several weeks. They state that she was home with them for the day enjoying the holiday and when she got back home the residential staff felt that she was having worsening shortness of breath. Patient does endorse feeling short of breath but mostly she is concerned about the bilateral lower extremity swelling. She denies any chest pain. She does have a history of CHF. TRAVEL OUTSIDE OF THE [place] IN LAST 30 DAYS: No - Related Data Allergies/Adverse Reactions: oxycodone HCl [From Percocet] Allergy (Verified 07/14/19 17:38) itching Past Medical History - General Information source: Patient, Relative - Nephew/Neice - Social History Smoking Status: Never Smoker Frequency of alcohol use: None Family History: Reviewed & Not Pertinent Patient has suicidal ideation: No Patient has homicidal ideation: No - Past Medical History Cardiac Medical History: Reports: Hx Hypercholesterolemia, Hx Hypertension Neurological Medical History: Denies: Hx Migraine, Hx Seizures Endocrine Medical History: Reports: Hx Diabetes Mellitus Type 2 GI Medical History: Reports: Hx Gastroesophageal Reflux Disease Infectious Medical History: Denies: Hx C-Diff, Hx MRSA Past Surgical History: Reports: Hx Cholecystectomy, Hx Hysterectomy, Other - Laser eye treatments - Immunizations Hx Diphtheria, Pertussis, Tetanus Vaccination: Yes Review of Systems - Review of Systems Constitutional: denies: Chills, Fever EENT: No symptoms reported Cardiovascular: No symptoms reported Respiratory: Cough, Short of breath Gastrointestinal: No symptoms reported Genitourinary: No symptoms reported Female Genitourinary: No symptoms reported Musculoskeletal: No symptoms reported Skin: No symptoms reported Hematologic/Lymphatic: No symptoms reported Neurological/Psychological: No symptoms reported Physical Exam - Vital signs Vitals: Temp Resp BP Pulse Ox 98.3 F 19 144/69 H 99 08/09/19 00:59 08/09/19 00:59 08/09/19 00:59 08/09/19 00:59 - Notes Notes: PHYSICAL EXAMINATION: GENERAL: Well-nourished and in no acute distress. HEAD: Atraumatic, normocephalic. EYES: Pupils equal round and reactive to light, extraocular movements intact, conjunctiva are normal. ENT: Nares patent, oropharynx clear without exudates. Moist mucous membranes. NECK: Normal range of motion, supple without lymphadenopathy LUNGS: Mild expiratory wheezes noted to right lower lobe. HEART: Regular rate and rhythm without murmurs ABDOMEN: Soft, nontender, nondistended abdomen. No guarding, no rebound. No masses appreciated. Female : deferred Musculoskeletal: 3+ pitting edema to bilateral lower extremities. No cyanosis. NEUROLOGICAL: Cranial nerves grossly intact. Normal speech. Normal sensory, motor exams. PSYCH: Normal mood, normal affect. SKIN: Erythema noted to left lower extremity, chronic wound noted to left foot. Course - Re-evaluation Re-evalutation: Laboratory 08/09/19 08/09/19 08/09/19 00:56 00:56 00:56 WBC 6.7 RBC 3.42 L Hgb 9.6 L Hct 29.4 L MCV 86 MCH 28.2 MCHC 32.8 RDW 19.1 H Plt Count 189 Lymph % (Auto) 29.4 [place] % (Auto) 11.8 Eos % (Auto) 3.1 Baso % (Auto) 0.5 Absolute Neuts (auto) 3.7 Absolute Lymphs (auto) 2.0 Absolute Monos (auto) 0.8 Absolute Eos (auto) 0.2 Absolute Basos (auto) 0.0 Seg Neutrophils % 55.2 Sodium 139.3 Potassium 4.5 Chloride 105 Carbon Dioxide 27 Anion Gap 7 BUN 42 H Creatinine 1.62 H Est GFR ( Amer) 38 L Est GFR (MDRD) Non-Af 31 L Glucose 375 H Calcium 8.8 Total Bilirubin 0.2 Direct Bilirubin 0.2 Neonat Total Bilirubin Not Reportable Neonat Direct Bilirubin Not Reportable Neonat Indirect Bili Not Reportable AST 18 ALT 18 Alkaline Phosphatase 85 NT-Pro-B Natriuret Pep 885 H Total Protein 6.4 Albumin 2.9 L Urine Color Urine Appearance Urine pH Ur Specific [place] Urine Protein Urine Glucose (UA) Urine Ketones Urine Blood Urine Nitrite (Reflex) Urine Bilirubin Urine Urobilinogen Leukocyte Esterase Rfl Urine RBC (Auto) Urine Bacteria (Auto) Urine WBC (Reflex) Urine WBC Clumps Squamous Epi Cells Auto Urine Mucus (Auto) Urine Yeast (Budding) Urine Ascorbic Acid 08/09/19 02:47 WBC RBC Hgb Hct MCV MCH MCHC RDW Plt Count Lymph % (Auto) [place] % (Auto) Eos % (Auto) Baso % (Auto) Absolute Neuts (auto) Absolute Lymphs (auto) Absolute Monos (auto) Absolute Eos (auto) Absolute Basos (auto) Seg Neutrophils % Sodium Potassium Chloride Carbon Dioxide Anion Gap BUN Creatinine Est GFR ( Amer) Est GFR (MDRD) Non-Af Glucose Calcium Total Bilirubin Direct Bilirubin Neonat Total Bilirubin Neonat Direct Bilirubin Neonat Indirect Bili AST ALT Alkaline Phosphatase NT-Pro-B Natriuret Pep Total Protein Albumin Urine Color YELLOW Urine Appearance SLIGHTLY-CLOUDY Urine pH 5.0 Ur Specific [place] 1.012 Urine Protein 30 H Urine Glucose (UA) >=500 H Urine Ketones NEGATIVE Urine Blood SMALL H Urine Nitrite (Reflex) NEGATIVE Urine Bilirubin NEGATIVE Urine Urobilinogen NEGATIVE Leukocyte Esterase Rfl MODERATE H Urine RBC (Auto) 6 Urine Bacteria (Auto) 3+ Urine WBC (Reflex) 39 Urine WBC Clumps FEW Squamous Epi Cells Auto 1 Urine Mucus (Auto) RARE Urine Yeast (Budding) PRESENT Urine Ascorbic Acid 40 H Chest X-Ray 08/09/19 01:00 IMPRESSION: Clear lungs. Patient does have what I would consider to be a mild CHF exacerbation. She does have 3+ pitting edema to her bilateral lower extremities and a somewhat elevated BNP. She does have evidence of urinary tract infection. She did recently have inpatient treatment for this and was sent home on Augmentin. Will consult hospitalist for admission. Hospitalist, Dr. Arias accepts patient for admission to the medical floor. - Vital Signs Vital signs: Temp Pulse Resp BP Pulse Ox 98.5 F 15 130/54 H 96 08/09/19 05:54 08/09/19 05:54 08/09/19 05:54 08/09/19 05:54 - Laboratory Result Diagrams: 08/09/19 00:56 08/09/19 00:56 Laboratory results interpreted by me: 08/09/19 08/09/19 08/09/19 00:56 00:56 00:56 RBC 3.42 L Hgb 9.6 L Hct 29.4 L RDW 19.1 H BUN 42 H Creatinine 1.62 H Est GFR ( Amer) 38 L Est GFR (MDRD) Non-Af 31 L Glucose 375 H NT-Pro-B Natriuret Pep 885 H Albumin 2.9 L Urine Protein Urine Glucose (UA) Urine Blood Leukocyte Esterase Rfl Urine Ascorbic Acid 08/09/19 02:47 RBC Hgb Hct RDW BUN Creatinine Est GFR ( Amer) Est GFR (MDRD) Non-Af Glucose NT-Pro-B Natriuret Pep Albumin Urine Protein 30 H Urine Glucose (UA) >=500 H Urine Blood SMALL H Leukocyte Esterase Rfl MODERATE H Urine Ascorbic Acid 40 H Discharge - Discharge Clinical Impression: Elevated brain natriuretic peptide (BNP) level, bilateral peripheral edema Condition: Stable Disposition: ADMITTED OBSERVATION Admitting Provider: Juana (Hospitalist) Unit Admitted: Medical Floor
[2019-08-09] MEDS ORDERED: CEFTRIAXONE 1 GM/D5W RTU 1 GM/50 ML RTUPB IV ONE (05:00)
[2019-08-09] MEDS ORDERED: MAG HYDROX/AL HYDROX/SIMETH SUSP 30 ML UDCUP PO PRN (05:26)
[2019-08-09] MEDS ORDERED: HYDRALAZINE HCL INJ/PF 20 MG/1 ML SDV IV PRN (05:26)
[2019-08-09] MEDS ORDERED: ACETAMINOPHEN 325 MG TABLET PO PRN (05:26)
[2019-08-09] MEDS ORDERED: MAGNESIUM HYDROXIDE SUSP 30 ML UDCUP PO PRN (05:26)
[2019-08-09] MEDS ORDERED: TRAMADOL HCL 50 MG TABLET PO PRN (05:27)
[2019-08-09] MEDS ORDERED: TEMAZEPAM 15 MG CAPSULE PO PRN (05:31)
[2019-08-09] MEDS ORDERED: ONDANSETRON HCL INJ/PF 4 MG/2 ML SDV IV PRN (05:31)
--- NOTE | 2019-08-09 06:30 | PDOC H&P ---
History of Present Illness Admission Date/PCP: 08/09/2019 04:39 SHAD EVANS Patient complains of: Dyspnea History of Present Illness: ROBBIN HERNÁNDEZ is a 74 year old female who was sent to the emergency room from a local intermediate facility due to acute dyspnea and lower extremity edema. A residential staff reported patient was found to have dyspnea worsened by exertion, orthopnea and significantly increased edema of her bilateral lower extremities all developing over the course of the day. Patient has a neurocognitive disorder and is unable to contribute to her medical history or treatment. The residential staff did not identify other associated or accompanying signs and symptoms nor had they identified any other aggravating or ameliorating factors. Patient has had previous similar symptoms when she was admitted to the hospital recently and treated for congestive heart failure. In the emergency room her O2 sat was 100% on room air, her BNP was significantly decreased from her previous admission at 885. Her renal function was little change from previous evaluations. Patient was noted to have 3+ pitting edema of the bilateral lower extremities on ER evaluation. Patient was subsequently placed in observation status for further evaluation and adjustments of therapy if appropriate. Past Medical History Past Medical History: Patient is noted to have neurocognitive dysfunction therefore the past medical history, social history, past surgical history and family medical history are the best and most reliable information available. Cardiac Medical History: Reports: Congestive Heart Failure, Hyperlipidema, Hypertension Denies: Atrial Fibrillation Pulmonary Medical History: Denies: Asthma, Chronic Obstructive Pulmonary Disease (COPD) EENT Medical History: Reports: Eyes - Diabetic retinopathy Denies: Cataracts, Ears - Hearing aids Neurological Medical History: Denies: Hemorrhagic CVA, Ischemic CVA, Migraine, Seizures Endocrine Medical History: Reports: Diabetes Mellitus Type 2 Denies: Diabetes Mellitus Type 1, Hyperthyroidism, Hypothyroidism Renal/ Medical History: Reports: Chronic Kidney Disease Denies: Nephrolithiasis Malignancy Medical History: Reports: None GI Medical History: Reports: Gastroesophageal Reflux Disease Denies: Cirrhosis, Crohn's Disease, Hepatitis, Ulcerative Colitis Musculoskeltal Medical History: Denies: Arthritis, Fibromyalgia Skin Medical History: Denies: Eczema, Psoriasis Psychiatric Medical History: Denies: Alcohol Dependency, Substance Abuse, Tobacco Dependency Traumatic Medical History: Reports: None Hematology: Denies: Anemia, Bleeding Tendencies Infectious Medical History: Reports: None Past Surgical History Past Surgical History: Patient is noted to have neurocognitive dysfunction therefore the past medical history, social history, past surgical history and family medical history are the best and most reliable information available. Past Surgical History: Reports: Cholecystectomy, Hysterectomy, Other - Retinal laser surgery Social History Information Source: [facility] Records Lives with: [facility] Smoking Status: Never Smoker Electronic Cigarette use?: No Frequency of Alcohol Use: None Hx Recreational Drug Use: No Drugs: None Hx Prescription Drug Abuse: No Past Social History Note: Patient is noted to have neurocognitive dysfunction therefore the past medical history, social history, past surgical history and family medical history are the best and most reliable information available. - Advance Directive Resuscitation Status: Full Code Surrogate healthcare decision maker:: Fatimahmorena Alexander Family History Family History: CAD Family History: Patient is noted to have neurocognitive dysfunction therefore the past medical history, social history, past surgical history and family medical history are the best and most reliable information available. Parental Family History Reviewed: Yes Children Family History Reviewed: No Sibling(s) Family History Reviewed.: Yes Medication/Allergy Home Medications: Aspirin/Dipyridamole [Aspirin-Dipyridam ER 25-200 mg] 1 each PO BID 07/15/19 B Complex W-C No.20/Folic Acid [Renal Caps Softgel] 1 mg PO BID 07/15/19 Duloxetine HCl [Cymbalta] 60 mg PO DAILY 07/15/19 Febuxostat [Uloric 40 mg Tablet] 40 mg PO DAILY 07/15/19 Glimepiride [Amaryl] 4 mg PO QAM 07/15/19 Insulin Degludec [Tresiba] 15 unit SQ DAILY 07/15/19 Lurasidone HCl [Latuda 40 mg Tablet] 20 mg PO BID 07/15/19 Metoprolol Succinate [Toprol XL 100 mg Tablet] 100 mg PO DAILY 07/15/19 Omeprazole Magnesium [Prilosec Otc] 20 mg PO BID 07/15/19 Oxybutynin Chloride [Oxybutynin Chloride ER] 5 mg PO DAILY 07/15/19 Pregabalin [Lyrica 75 mg Capsule] 75 mg PO Q12 07/15/19 Rosuvastatin Calcium [Crestor] 40 mg PO DAILY 07/15/19 Tramadol HCl [Ultram 50 mg Tablet] 50 mg PO BIDP PRN 07/15/19 Trazodone HCl [Desyrel 50 mg Tablet] 50 mg PO HSP PRN 07/15/19 Amlodipine Besylate [Norvasc 10 mg Tablet] 10 mg PO DAILY #30 tablet 07/19/19 Amoxicillin/Potassium Clav [Augmentin 500-125 Tablet] 1 each PO BID 3 Days #6 tablet 07/19/19 Allergies/Adverse Reactions: oxycodone HCl [From Percocet] Allergy (Verified 07/14/19 17:38) itching Review of Systems ROS unobtainable: Other - Due to neurocognitive dysfunction Review of Systems: Patient is noted to have a great difficulty trying to communicate, information supplied here in may be of less than optimal value. Physical Exam Vital Signs: Temp Pulse Resp BP Pulse Ox 98.3 F 18 150/69 H 98 08/09/19 00:59 08/09/19 03:01 08/09/19 03:01 08/09/19 03:01 Intake & Output 08/07/19 08/08/19 08/09/19 23:59 23:59 23:59 Weight 90.718 kg General appearance: PRESENT: no acute distress, cooperative, morbidly obese Head exam: PRESENT: atraumatic, normocephalic Eye exam: PRESENT: conjunctiva pink. ABSENT: conjunctival injection, scleral icterus Ear exam: PRESENT: normal external ear exam. ABSENT: bleeding, drainage Mouth exam: PRESENT: dry mucosa, neck supple Neck exam: ABSENT: JVD, thyromegaly, tracheal deviation Respiratory exam: PRESENT: rales - Fine bibasilar rales, symmetrical, unlabored Cardiovascular exam: PRESENT: RRR. ABSENT: clicks, gallop, rubs Pulses: PRESENT: normal carotid pulses, normal radial pulses Vascular exam: PRESENT: normal capillary refill. ABSENT: pallor GI/Abdominal exam: PRESENT: normal bowel sounds, soft Rectal exam: PRESENT: deferred Extremities exam: PRESENT: pedal edema, +2 edema - 2+ pretibial edema bilateral lower extremities, other - Left heel ulceration noted. ABSENT: joint swelling Musculoskeletal exam: ABSENT: deformity, dislocation Neurological exam: PRESENT: alert, CN II-XII grossly intact, other - Oriented only to her name Psychiatric exam: PRESENT: flat affect, normal mood, other - Calm, pleasant and affable Skin exam: PRESENT: dry, warm, other - Left heel ulceration noted. ABSENT: jaundice, rash, urticaria Results Laboratory Results: 08/09/19 00:56 08/09/19 00:56 08/09/19 08/09/19 08/09/19 00:56 00:56 02:47 WBC 6.7 RBC 3.42 L Hgb 9.6 L Hct 29.4 L MCV 86 MCH 28.2 MCHC 32.8 RDW 19.1 H Plt Count 189 Seg Neutrophils % 55.2 Sodium 139.3 Potassium 4.5 Chloride 105 Carbon Dioxide 27 Anion Gap 7 BUN 42 H Creatinine 1.62 H Est GFR ( Amer) 38 L Glucose 375 H Calcium 8.8 Total Bilirubin 0.2 AST 18 Alkaline Phosphatase 85 Total Protein 6.4 Albumin 2.9 L Urine Color YELLOW Urine Appearance SLIGHTLY-CLOUDY Urine pH 5.0 Ur Specific [place] 1.012 Urine Protein 30 H Urine Glucose (UA) >=500 H Urine Ketones NEGATIVE Urine Blood SMALL H Urine RBC (Auto) 6 08/09/19 00:56 NT-Pro-B Natriuret Pep 885 H Impressions: Chest X-Ray 08/09/19 01:00 IMPRESSION: Clear lungs. Assessment and Plan - Diagnosis (1) Acute renal failure superimposed on stage 3 chronic kidney disease Qualifiers: Acute renal failure type: unspecified Qualified Code(s): N17.9 - Acute kidney failure, unspecified; N18.3 - Chronic kidney disease, stage 3 (moderate) Is this a current diagnosis for this admission?: Yes (2) Chronic diastolic congestive heart failure Is this a current diagnosis for this admission?: Yes (3) Hypertension Qualifiers: Hypertension type: essential hypertension Qualified Code(s): I10 - Essential (primary) hypertension Is this a current diagnosis for this admission?: Yes (4) Hypercholesterolemia Is this a current diagnosis for this admission?: Yes (5) Diabetic neuropathy Qualifiers: Diabetes mellitus type: type 2 Diabetes mellitus complication detail: diabetic polyneuropathy Qualified Code(s): E11.42 - Type 2 diabetes mellitus with diabetic polyneuropathy Is this a current diagnosis for this admission?: Yes (6) Diabetic retinopathy Qualifiers: Diabetes mellitus type: type 2 Diabetic retinopathy severity: with unspecified retinopathy severity Diabetes mellitus macular edema: macular edema presence unspecified Laterality: bilateral Qualified Code(s): E11.319 - Type 2 diabetes mellitus with unspecified diabetic retinopathy without macular edema Is this a current diagnosis for this admission?: Yes (7) Diabetic ulcer of heel Qualifiers: Diabetes mellitus type: type 2 Laterality: left Non-pressure ulcer stage: limited to breakdown of skin Qualified Code(s): E11.621 - Type 2 diabetes mellitus with foot ulcer; L97.421 - Non-pressure chronic ulcer of left heel and midfoot limited to breakdown of skin Is this a current diagnosis for this admission?: Yes (8) Diabetes mellitus type 2 in obese Is this a current diagnosis for this admission?: Yes (9) Neurocognitive disorder Is this a current diagnosis for this admission?: Yes - Plan Summary Summary: Patient is admitted observation status for probable medication adjustment prior to being returned to the residential. Initial changes will be made by myself when I review her medical reconciliation record and order her initial medications for this observation status stay. Serial cardiac enzymes will be obtained. Laboratory evaluations will be reassessed tomorrow morning and patient's vital signs will be followed closely including her oxygen saturation. Her blood sugar will be monitored closely with before meals and at bedtime Accu- Cheks using sliding scale insulin for hyperglycemia and a hypoglycemic protocol if needed. Patient's diuretics have been changed to Demadex and Spironolactone and adjustments in her ARB and beta-adiel will be considered. - Time Time Spent with patient: Less than 15 minutes Medications reviewed and adjusted accordingly: Yes Anticipated discharge: SNF Within: within 48 hours - Inpatient Certification Based on my medical assessment, after consideration of the patient's comorbidities, presenting symptoms, or acuity I expect that the services needed warrant INPATIENT care.: No I certify that my determination is in accordance with my understanding of Medicare's requirements for reasonable and necessary INPATIENT services [42 CFR 412.3e].: No
[2019-08-09] MEDS ORDERED: DEXTROSE 40% GEL 15 GM TUBE PO PRN ×2 (06:31)
[2019-08-09] MEDS ORDERED: GLUCAGON,HUMAN RECOMB 1 MG INJ IM PRN (06:31)
[2019-08-09] MEDS ORDERED: DEXTROSE 50%-WATER 25 GM/50 ML DISP.SYRIN IV PRN ×2 (06:31)
[2019-08-09] MEDS: PANTOPRAZOLE SODIUM 40 MG TABLET.DR PO SCH ×2 (06:44→17:26)
[2019-08-09] MEDS: HEPARIN SOD (PORCINE) 5,000 UNIT/ML 1 ML VIAL SUBCUT SCH ×3 (06:44→22:10)
[2019-08-09 07:15] LABS: CHOLESTEROL 95.13 mg/dL (0-200); CREATINE KINASE 26 U/L (30-135); TRIGLYCERIDES 80 mg/dL (<150)
[2019-08-09 07:23] LABS: CREATINE KINASE MB 0.73 ng/mL (<4.55)
[2019-08-09 07:26] LABS: DIRECT LDL 49 mg/dL (<100); TROPONIN I < 0.012 ng/mL
[2019-08-09] MEDS: INSULIN REG, HUMAN 100 UNIT/ML 3 ML VIAL (PYX) SUBCUT PRN ×3 (08:07→17:26)
[2019-08-09] MEDS: GLIMEPIRIDE 4 MG TABLET PO SCH ×2 (08:07→17:26)
[2019-08-09] MEDS: METOPROLOL SUCCINATE 50 MG TAB.SR.24H PO SCH ×2 (09:53→22:14)
[2019-08-09] MEDS: LOSARTAN POTASSIUM 50 MG TABLET PO SCH ×2 (09:53→22:12)
[2019-08-09] MEDS: DOCUSATE SODIUM 100 MG CAPSULE PO SCH ×2 (09:54→17:26)
[2019-08-09] MEDS: DULOXETINE HCL 30 MG CAPSULE.DR PO SCH (09:54)
[2019-08-09] MEDS: PREGABALIN 75 MG CAPSULE PO SCH ×2 (09:54→17:26)
[2019-08-09] MEDS: LURASIDONE HCL 40 MG TABLET PO SCH (10:24)
--- NOTE | 2019-08-09 12:14 | EKG REPORT ---
SEVERITY:- NORMAL ECG - SINUS RHYTHM : Confirmed by: Tommy Villanueva 09-Aug-2019 12:13:23
[2019-08-09 13:08] LABS: TROPONIN I < 0.012 ng/mL
--- NOTE | 2019-08-09 13:50 | Progress Note ---
Provider Note Provider Note: 08/09/2019 Patient seen briefly, labs reviewed, 2 troponins are negative pending the third. She has no complaints, will possibly discharge back to nursing facility tomorrow
[2019-08-09 19:51] LABS: CREATINE KINASE MB 0.56 ng/mL (<4.55)
[2019-08-09 19:53] LABS: TROPONIN I < 0.012 ng/mL
[2019-08-09] MEDS ORDERED: ATORVASTATIN CALCIUM 80 MG TABLET PO SCH (22:00)
[2019-08-10 05:01] LABS: HEMATOCRIT 30.4 % (36.0-47.0); HEMOGLOBIN 10.1 g/dL (12.0-15.5); MEAN CORPUSCULAR HEMOGLOBIN 28.5 pg (27.0-33.4); MEAN CORPUSCULAR HGB CONC 33.4 g/dL (32.0-36.0); MEAN CORPUSCULAR VOLUME 85 fl (80-97); PLATELET COUNT 187 10^3/uL (150-450); RED BLOOD COUNT 3.56 10^6/uL (3.72-5.28); RED CELL DISTRIBUTION WIDTH 19.2 % (11.5-14.0); WHITE BLOOD COUNT 7.8 10^3/uL (4.0-10.5)
[2019-08-10 05:17] LABS: ANION GAP 5 (5-19); BLOOD UREA NITROGEN 48 mg/dL (7-20); CALCIUM 9.1 mg/dL (8.4-10.2); CARBON DIOXIDE 29 mmol/L (22-30); CHLORIDE 107 mmol/L (98-107); GLUCOSE 82 mg/dL (75-110); POTASSIUM 4.7 mmol/L (3.6-5.0)
[2019-08-10] MEDS: HEPARIN SOD (PORCINE) 5,000 UNIT/ML 1 ML VIAL SUBCUT SCH ×2 (06:19→13:28)
[2019-08-10] MEDS: PANTOPRAZOLE SODIUM 40 MG TABLET.DR PO SCH (06:19)
[2019-08-10] MEDS: GLIMEPIRIDE 4 MG TABLET PO SCH (08:15)
[2019-08-10] MEDS ORDERED: SULFAMETHOXAZOLE/TRIMETHOPRIM 800-160 MG TABLET PO SCH (10:00)
[2019-08-10] MEDS: PREGABALIN 75 MG CAPSULE PO SCH (10:24)
[2019-08-10] MEDS: DOCUSATE SODIUM 100 MG CAPSULE PO SCH (10:24)
[2019-08-10] MEDS: METOPROLOL SUCCINATE 50 MG TAB.SR.24H PO SCH (10:25)
[2019-08-10] MEDS: DULOXETINE HCL 30 MG CAPSULE.DR PO SCH (10:25)
[2019-08-10] MEDS: LURASIDONE HCL 40 MG TABLET PO SCH (10:26)
[2019-08-10] MEDS: LOSARTAN POTASSIUM 50 MG TABLET PO SCH (11:16)
[2019-08-10] MEDS: INSULIN REG, HUMAN 100 UNIT/ML 3 ML VIAL (PYX) SUBCUT PRN (12:19)
[2019-08-10 13:18] VITALS: BP 118/50
--- NOTE | 2019-08-11 14:19 | PDOC DISCHARGE SUMMARY ---
Impression - Admit/DC Date/PCP Admission Date/Primary Care Provider: 08/09/19 05:32 SHAD EVANS Discharge Date: 08/10/19 - Discharge Diagnosis (1) CASSY (acute kidney injury) Is this a current diagnosis for this admission?: Yes (2) Acute renal failure superimposed on stage 3 chronic kidney disease Is this a current diagnosis for this admission?: Yes (3) Chronic diastolic congestive heart failure Is this a current diagnosis for this admission?: Yes (4) Diabetes mellitus type 2 in obese Is this a current diagnosis for this admission?: Yes (5) Diabetic neuropathy Is this a current diagnosis for this admission?: Yes (6) Hypertension Is this a current diagnosis for this admission?: Yes - Assessment Summary: Patient is admitted observation status for probable medication adjustment prior to being returned to the [facility]. Initial changes will be made by myself when I review her medical reconciliation record and order her initial medications for this observation status stay. Serial cardiac enzymes will be obtained. Laboratory evaluations will be reassessed tomorrow morning and patient's vital signs will be followed closely including her oxygen saturation. Her blood sugar will be monitored closely with before meals and at bedtime Accu- Cheks using sliding scale insulin for hyperglycemia and a hypoglycemic protocol if needed. Patient's diuretics have been changed to Demadex and Spironolactone and adjustments in her ARB and beta-adiel will be considered. 08/10/2019 She was discharged home today. Prescription for Cipro 250 mg 14 tablets 1 twice daily and Lasix 20 mg 1 tablet daily #30 Patient to be seen by her primary care doctor in 7 to 10 days - Additional Information Resuscitation Status: Full Code Discharge Diet: Diabetic Discharge Activity: Activity As Tolerated Referrals: SHAD EVANS MD [Primary Care Provider] - Prescriptions: Ciprofloxacin HCl [Cipro 250 mg Tablet] 1 tab PO BID #14 tab Furosemide [Lasix 20 mg Tablet] 20 mg PO QAM #30 tablet Home Medications: Allopurinol [Zyloprim 100 mg Tablet] 100 mg PO DAILY 08/09/19 Amlodipine Besylate [Norvasc 10 mg Tablet] 10 mg PO DAILY 08/09/19 Ascorbic Acid [Vitamin C 500 mg Tablet] 500 mg PO DAILY 08/09/19 Aspirin/Dipyridamole [Aggrenox 25 mg/200 mg Capsule SA] 1 cap PO BID 08/09/19 B Complex W-C No.20/Folic Acid [Renal Caps Softgel] 1 mg PO BID 08/09/19 Duloxetine HCl [Cymbalta] 60 mg PO DAILY 08/09/19 Glimepiride [Amaryl 4 mg Tablet] 4 mg PO DAILY 08/09/19 Insulin Aspart [Novolog Insulin (Aspart) 100 unit/mL] 0 units SQ .PERSLIDINGSCALE 08/09/19 Insulin Degludec [Tresiba] 15 units SQ DAILY 08/09/19 Lurasidone HCl [Latuda] 20 mg PO DAILY 08/09/19 Metoprolol Succinate [Toprol XL 100 mg Tablet] 100 mg PO DAILY 08/09/19 Multivitamin [Multiple Vitamins] 1 tab PO DAILY 08/09/19 Omeprazole 20 mg PO BID 08/09/19 Oxybutynin Chloride [Ditropan Xl] 5 mg PO DAILY 08/09/19 Pregabalin [Lyrica 75 mg Capsule] 75 mg PO Q12 08/09/19 Rosuvastatin Calcium [Crestor] 40 mg PO QHS 08/09/19 Tramadol HCl [Ultram 50 mg Tablet] 50 mg PO Q12HP PRN 08/09/19 Zinc Sulfate [Zinc-220] 220 mg PO DAILY 08/09/19 Ciprofloxacin HCl [Cipro 250 mg Tablet] 1 tab PO BID #14 tab 08/10/19 Furosemide [Lasix 20 mg Tablet] 20 mg PO QAM #30 tablet 08/10/19 Lurasidone HCl [Latuda 40 mg Tablet] 20 mg PO DAILY tablet 08/10/19 History of Present Illiness History of Present Illness: ROBBIN HERNÁNDEZ is a 74 year old female Physical Exam Vital Signs: Temp Pulse Resp BP Pulse Ox 98.1 F 66 20 118/50 L 93 08/10/19 14:15 08/10/19 14:15 08/10/19 14:15 08/10/19 14:15 08/10/19 14:15 Intake & Output 08/10/19 08/11/19 08/12/19 06:59 06:59 06:59 Intake Total 1094 240 Output Total 2250 1250 Balance -1156 -1010 Weight 92.2 kg Results Laboratory Results: WBC 7.8 10^3/uL (4.0-10.5) 08/10/19 04:42 RBC 3.56 10^6/uL (3.72-5.28) L 08/10/19 04:42 Hgb 10.1 g/dL (12.0-15.5) L 08/10/19 04:42 Hct 30.4 % (36.0-47.0) L 08/10/19 04:42 MCV 85 fl (80-97) 08/10/19 04:42 MCH 28.5 pg (27.0-33.4) 08/10/19 04:42 MCHC 33.4 g/dL (32.0-36.0) 08/10/19 04:42 RDW 19.2 % (11.5-14.0) H 08/10/19 04:42 Plt Count 187 10^3/uL (150-450) 08/10/19 04:42 Lymph % (Auto) 29.4 % (13-45) 08/09/19 00:56 [place] % (Auto) 11.8 % (3-13) 08/09/19 00:56 Eos % (Auto) 3.1 % (0-6) 08/09/19 00:56 Baso % (Auto) 0.5 % (0-2) 08/09/19 00:56 Absolute Neuts (auto) 3.7 10^3/uL (1.7-8.2) 08/09/19 00:56 Absolute Lymphs (auto) 2.0 10^3/uL (0.5-4.7) 08/09/19 00:56 Absolute Monos (auto) 0.8 10^3/uL (0.1-1.4) 08/09/19 00:56 Absolute Eos (auto) 0.2 10^3/uL (0.0-0.6) 08/09/19 00:56 Absolute Basos (auto) 0.0 10^3/uL (0.0-0.2) 08/09/19 00:56 Seg Neutrophils % 55.2 % (42-78) 08/09/19 00:56 Sodium 141.2 mmol/L (137-145) 08/10/19 04:42 Potassium 4.7 mmol/L (3.6-5.0) 08/10/19 04:42 Chloride 107 mmol/L (98-107) 08/10/19 04:42 Carbon Dioxide 29 mmol/L (22-30) 08/10/19 04:42 Anion Gap 5 (5-19) 08/10/19 04:42 BUN 48 mg/dL (7-20) H 08/10/19 04:42 Creatinine 1.59 mg/dL (0.52-1.25) H 08/10/19 04:42 Est GFR ( Amer) 38 (>60) L 08/10/19 04:42 Est GFR (MDRD) Non-Af 32 (>60) L 08/10/19 04:42 Glucose 82 mg/dL (75-110) 08/10/19 04:42 POC Glucose 174 mg/dL (70-110) H 08/10/19 11:14 Hemoglobin A1c % 9.8 % (4.7-6.0) H 08/09/19 06:42 Calcium 9.1 mg/dL (8.4-10.2) 08/10/19 04:42 Magnesium 1.9 mg/dL (1.6-2.3) 08/10/19 04:42 Total Bilirubin 0.2 mg/dL (0.2-1.3) 08/09/19 00:56 Direct Bilirubin 0.2 mg/dL (0.0-0.4) 08/09/19 00:56 Neonat Total Bilirubin Not Reportable 08/09/19 00:56 Neonat Direct Bilirubin Not Reportable 08/09/19 00:56 Neonat Indirect Bili Not Reportable 08/09/19 00:56 AST 18 U/L (14-36) 08/09/19 00:56 ALT 18 U/L (<35) 08/09/19 00:56 Alkaline Phosphatase 85 U/L (38-126) 08/09/19 00:56 Creatine Kinase < 20 U/L (30-135) L 08/09/19 17:43 CK-MB (CK-2) 0.56 ng/mL (<4.55) 08/09/19 17:43 Troponin I < 0.012 ng/mL 08/09/19 17:43 NT-Pro-B Natriuret Pep 885 pg/mL (<125) H 08/09/19 00:56 Total Protein 6.4 g/dL (6.3-8.2) 08/09/19 00:56 Albumin 2.9 g/dL (3.5-5.0) L 08/09/19 00:56 Triglycerides 80 mg/dL (<150) 08/09/19 06:42 Cholesterol 95.13 mg/dL (0-200) 08/09/19 06:42 LDL Cholesterol Direct 49 mg/dL (<100) 08/09/19 06:42 VLDL Cholesterol 16.0 mg/dL (10-31) 08/09/19 06:42 HDL Cholesterol 32 mg/dL (>40) L 08/09/19 06:42 TSH 2.35 uIU/mL (0.47-4.68) 08/10/19 04:42 Free T3 pg/mL 3.30 pg/mL (2.77-5.27) 08/09/19 06:42 Urine Color YELLOW 08/09/19 02:47 Urine Appearance SLIGHTLY-CLOUDY 08/09/19 02:47 Urine pH 5.0 (5.0-9.0) 08/09/19 02:47 Ur Specific [place] 1.012 08/09/19 02:47 Urine Protein 30 mg/dL (NEGATIVE) H 08/09/19 02:47 Urine Glucose (UA) >=500 mg/dL (NEGATIVE) H 08/09/19 02:47 Urine Ketones NEGATIVE mg/dL (NEGATIVE) 08/09/19 02:47 Urine Blood SMALL (NEGATIVE) H 08/09/19 02:47 Urine Nitrite (Reflex) NEGATIVE (NEGATIVE) 08/09/19 02:47 Urine Bilirubin NEGATIVE (NEGATIVE) 08/09/19 02:47 Urine Urobilinogen NEGATIVE mg/dL (<2.0) 08/09/19 02:47 Leukocyte Esterase Rfl MODERATE (NEGATIVE) H 08/09/19 02:47 Urine RBC (Auto) 6 /HPF 08/09/19 02:47 Urine Bacteria (Auto) 3+ /HPF 08/09/19 02:47 Urine WBC (Reflex) 39 /HPF 08/09/19 02:47 Urine WBC Clumps FEW /HPF 08/09/19 02:47 Squamous Epi Cells Auto 1 /HPF 08/09/19 02:47 Urine Mucus (Auto) RARE /LPF 08/09/19 02:47 Urine Yeast (Budding) PRESENT /HPF 08/09/19 02:47 Urine Ascorbic Acid 40 (NEGATIVE) H 08/09/19 02:47 08/09/19 08/09/19 08/09/19 00:56 06:42 11:45 CK-MB (CK-2) 0.73 0.60 Troponin I < 0.012 < 0.012 NT-Pro-B Natriuret Pep 885 H 08/09/19 17:43 CK-MB (CK-2) 0.56 Troponin I < 0.012 NT-Pro-B Natriuret Pep Impressions: Chest X-Ray 08/09/19 01:00 IMPRESSION: Clear lungs. Stroke Is this a Stroke Patient?: No Acute Heart Failure - Is this a Heart Failure Patient?: Yes Documentation of LVEF assessment?: No, Document reason LVEF < 40%?: No- if no continue to question #3 3. Anticoagulant therapy for permanect/persistent/paraoxysmal Afib or Aflutter: No, document contraindications Reason(s) not discharged on anticoagulant therapy for permanect/persistent/paraoxysmal Afib or Aflutter: Risk for bleeding, Repeated falls/unsteady gait, Uncooperative/unreliable patient Follow-up Appointment scheduled within 7 days?: Yes
== END 2019-08-10 15:00 | disposition home or self-care (01) ==
LOC: ER 00:46 → EH 05:32 → 4N 06:30
PROVIDERS: ADMIT Emergency Medicine; ATTEND Emergency Medicine
DX: N17.9 Acute kidney failure, unspecified (principal); E11.22 Type 2 diabetes mellitus with diabetic chronic kidney disease; I13.0 Hypertensive heart and chronic kidney disease with heart failure and stage 1 through stage 4 chronic kidney disease, or unspecified chronic kidney disease; N18.3 Chronic kidney disease, stage 3 (moderate); I50.32 Chronic diastolic (congestive) heart failure; E11.42 Type 2 diabetes mellitus with diabetic polyneuropathy; E11.319 Type 2 diabetes mellitus with unspecified diabetic retinopathy without macular edema; E11.621 Type 2 diabetes mellitus with foot ulcer; L97.421 Non-pressure chronic ulcer of left heel and midfoot limited to breakdown of skin; R41.9 Unspecified symptoms and signs involving cognitive functions and awareness; E66.01 Morbid (severe) obesity due to excess calories; E78.5 Hyperlipidemia, unspecified; R05 Cough; R06.2 Wheezing; N39.0 Urinary tract infection, site not specified; R74.8 Abnormal levels of other serum enzymes; Z79.899 Other long term (current) drug therapy; Z79.82 Long term (current) use of aspirin; Z90.49 Acquired absence of other specified parts of digestive tract; Z82.49 Family history of ischemic heart disease and other diseases of the circulatory system; Z79.4 Long term (current) use of insulin
CPT/HCPCS: 93005; 94640; 99285; 51701; 96375; 96365; 36415 ×2; 87086; 82553; 82962 ×2; 82550; 83735; 84443; 85025; 85027; 87088; 80048; 80053; 81001; 84484; 87186; 84481; 83036; 80061; 83880; 71045; 93010; G0378 ×3; J1644 ×2; A9270 ×21; J1940; J3490 ×2; J0696; J1815; J7620

== ENCOUNTER 2019-10-22 08:14 | Emergency (ER) | payer MEDICARE, MEDICAID ==
[2019-10-22 09:01] LABS: ABSOLUTE BASOPHILS # (AUTO) 0.1 10^3/uL (0.0-0.2); ABSOLUTE EOSINOPHILS # (AUTO) 0.1 10^3/uL (0.0-0.6); ABSOLUTE LYMPHOCYTES (AUTO) 1.8 10^3/uL (0.5-4.7); ABSOLUTE MONOCYTES (AUTO) 0.6 10^3/uL (0.1-1.4); ABSOLUTE NEUT (AUTO) 12.5 10^3/uL (1.7-8.2); BASOPHILS % (AUTO) 0.3 % (0-2); EOSINOPHILS % (AUTO) 0.7 % (0-6); HEMOGLOBIN 12.3 g/dL (12.0-15.5); LYMPHOCYTES % (AUTO) 11.9 % (13-45); MEAN CORPUSCULAR HEMOGLOBIN 28.1 pg (27.0-33.4); MEAN CORPUSCULAR HGB CONC 32.4 g/dL (32.0-36.0); MEAN CORPUSCULAR VOLUME 87 fl (80-97); MONOCYTES % (AUTO) 4.1 % (3-13); PLATELET COUNT 262 10^3/uL (150-450); RED BLOOD COUNT 4.38 10^6/uL (3.72-5.28); RED CELL DISTRIBUTION WIDTH 17.1 % (11.5-14.0); TOTAL CELLS COUNTED % (AUTO) 100 %
[2019-10-22 09:19] LABS: ALBUMIN 3.5 g/dL (3.5-5.0); ALKALINE PHOSPHATASE 86 U/L (38-126); ANION GAP 8 (5-19); ASPARTATE AMINO TRANSFERASE 26 U/L (14-36); BILIRUBIN,DIRECT 0.3 mg/dL (0.0-0.4); BILIRUBIN,TOTAL 0.4 mg/dL (0.2-1.3); BLOOD UREA NITROGEN 34 mg/dL (7-20); CALCIUM 9.3 mg/dL (8.4-10.2); CARBON DIOXIDE 31 mmol/L (22-30); CHLORIDE 104 mmol/L (98-107); GLUCOSE 196 mg/dL (75-110); POTASSIUM 3.8 mmol/L (3.6-5.0); TOTAL PROTEIN 7.5 g/dL (6.3-8.2)
[2019-10-22] MEDS ORDERED: PANTOPRAZOLE SODIUM 40 MG VIAL IV ONE (10:21)
--- NOTE | 2019-10-22 10:29 | ER Document Report ---
ED General - General Chief Complaint: Nausea/Vomiting/Diarrhea Stated Complaint: DIARRHEA Time Seen by Provider: 10/22/19 09:25 Primary Care Provider: YOBANY LINO MD [Primary Care Provider] - Follow up as needed TRAVEL OUTSIDE OF THE [place] IN LAST 30 DAYS: No - HPI Notes: Patient is a 74-year-old female, resident at [facility], sent into the emergency department for evaluation of coffee-ground emesis. She had one episode of emesis last night, noted as dark. She was given IM Phenergan and it resolved. She had a further episode today. She is also had some diarrhea. No fevers to their knowledge, but patient's granddaughter notes that they have had a "GI illness" going around the long-term. The patient herself states that she is feeling much improved. She did not have dinner or breakfast this night and she is hungry. She is still urinating. No other acute complaints or concerns. - Related Data Allergies/Adverse Reactions: oxycodone HCl [From Percocet] Allergy (Verified 10/22/19 09:03) itching Home Medications: Aggrenox 25/201 capsule twice daily, renal gel 1 cap daily, Co gentin 1 mg nightly, chlorthalidone 0.5 mg daily, Uloric 40 mg p.o. daily, Keppra 250 mg twice daily, Toprol 100 g daily, Risperdal 0.25 mg twice daily, Crestor 40 mg daily Past Medical History - General Information source: Patient, [facility] Records, Outside Facility Records - Social History Smoking Status: Former Smoker Family History: Reviewed & Not Pertinent Patient has suicidal ideation: No Patient has homicidal ideation: No - Past Medical History Cardiac Medical History: Reports: Hx Congestive Heart Failure, Hx Hypercholesterolemia, Hx Hypertension Denies: Hx Atrial Fibrillation Pulmonary Medical History: Denies: Hx Asthma, Hx COPD Neurological Medical History: Denies: Hx Migraine, Hx Seizures Endocrine Medical History: Reports: Hx Diabetes Mellitus Type 2. Denies: Hx Diabetes Mellitus Type 1, Hx Hyperthyroidism, Hx Hypothyroidism Renal/ Medical History: Reports: Hx Renal Insufficiency GI Medical History: Reports: Hx Gastroesophageal Reflux Disease. Denies: Hx Cirrhosis, Hx Crohn's Disease, Hx Hepatitis, Hx Ulcerative Colitis Musculoskeletal Medical History: Denies Hx Arthritis, Denies Hx Fibromyalgia Skin Medical History: Denies Hx Eczema, Denies Hx Psoriasis Infectious Medical History: Denies: Hx C-Diff, Hx Hepatitis, Hx MRSA Past Surgical History: Reports: Hx Cholecystectomy, Hx Hysterectomy, Other - Laser eye treatments - Immunizations Hx Diphtheria, Pertussis, Tetanus Vaccination: Yes Review of Systems - Review of Systems Gastrointestinal: See HPI -: Yes All other systems reviewed and negative Physical Exam - Vital signs Vitals: Temp Resp Pulse Ox 98.9 F 16 93 10/22/19 08:21 10/22/19 08:21 10/22/19 08:21 - Notes Notes: Is a pleasant 74-year-old female who appears her stated age in no acute distress. She is resting comfortably in the bed. She does have some difficulty hearing, but is otherwise stable. Vital signs reviewed, please refer to chart. Head is normocephalic, atraumatic. Pupils equal round, reactive to light. Neck is supple without meningismus. Heart is regular rate and rhythm. Lungs are clear to auscultation bilaterally. Abdomen is soft, nontender, normoactive bowel sounds throughout. Extremities without cyanosis, clubbing. Posterior calves are nontender. Peripheral pulses are equal. Skin is warm and dry. Patient is awake, alert, neurological exam is nonfocal. Stool is green and found to be heme negative. Course - Re-evaluation Re-evalutation: 10/22/19 10:28 Patient presents to the emergency department for evaluation. Laboratory investigations were obtained. She does have an elevated BUN to creatinine ratio, so it is possible that she did have some upper GI bleeding. She actually already has a GI consult pending as an outpatient. She is currently stable. Her hemoglobin is stable. She is given IV Protonix here. Plan was discussed with family. At this point, barring any further hematemesis, I am comfortable with the patient being discharged to pursue further outpatient work-up. Family is amenable to this plan as well. Still awaiting urinalysis, we will continue to monitor. 10/22/19 12:36 Patient does in fact have a UTI. She tolerated p.o. fluids as well as antibiotics. I discussed the patient's findings and plan with her daughter, granddaughter. They are all amenable to discharge and close follow-up. We will send her home with a prescription for Keflex. She is already on a PPI. She is to continue to seek out the GI consult. Return to the emergency department for worsening or new concerning symptoms of any sort. - Vital Signs Vital signs: Temp Pulse Resp BP Pulse Ox 98.6 F 76 15 124/58 L 95 10/22/19 13:23 10/22/19 13:23 10/22/19 13:23 10/22/19 13:23 10/22/19 13:23 - Laboratory Result Diagrams: 10/22/19 08:44 10/22/19 08:44 Laboratory results interpreted by me: 10/22/19 10/22/19 10/22/19 08:44 08:44 10:50 WBC 15.0 H RDW 17.1 H Lymph % (Auto) 11.9 L Absolute Neuts (auto) 12.5 H Seg Neutrophils % 83.0 H Carbon Dioxide 31 H BUN 34 H Est GFR ( Amer) 54 L Est GFR (MDRD) Non-Af 45 L Glucose 196 H Urine Protein 100 H Ur Leukocyte Esterase LARGE H Urine Ascorbic Acid 20 H Discharge - Discharge Clinical Impression: Nausea vomiting and diarrhea UTI (urinary tract infection) Qualifiers: Urinary tract infection type: site unspecified Hematuria presence: without hematuria Qualified Code(s): N39.0 - Urinary tract infection, site not specified Hematemesis Qualifiers: Nausea presence: with nausea Qualified Code(s): K92.0 - Hematemesis Condition: Good Disposition: HOME-ASSISTED LIVING Instructions: Diarrhea, Nonspecific ([facility]), Urinary Tract Infection ([facility]), Vomiting ([facility]) Additional Instructions: There may have been some blood in your emesis, but there was no blood in your stool today. Your abdominal exam remained benign. You do have a urinary tract infection, you have been started on Keflex. Clear liquids, advance slowly to bland diet. Please continue to seek out GI consult as discussed. Return to the emergency department with worsening or new concerning symptoms of any sort. Prescriptions: Cephalexin Monohydrate [Keflex 500 mg Capsule] 500 mg PO QID #20 capsule Referrals: YOBANY LINO MD [Primary Care Provider] - Follow up as needed
[2019-10-22 11:28] LABS: BILIRUBIN,URINE NEGATIVE (NEGATIVE); GLUCOSE, URINE NEGATIVE (NEGATIVE); KETONES,URINE NEGATIVE (NEGATIVE); LEUKOCYTE ESTERASE,URINE LARGE (NEGATIVE); NITRITE,URINE NEGATIVE (NEGATIVE); PROTEIN,URINE 100 mg/dL (NEGATIVE); URINE SPECIFIC GRAVITY 1.018; UROBILINOGEN,URINE NEGATIVE mg/dL (<2.0)
[2019-10-22 11:30] LABS: APPEARANCE,URINE CLOUDY; COLOR,URINE DARK YELLOW
[2019-10-22] MEDS ORDERED: CEPHALEXIN 500 MG CAPSULE PO ONE (11:40)
[2019-10-22 13:06] VITALS: BP 124/58
== END 2019-10-22 13:28 | disposition home health service (06) ==
LOC: ER 08:14
DX: K92.0 Hematemesis (principal); N39.0 Urinary tract infection, site not specified; R19.7 Diarrhea, unspecified; I11.0 Hypertensive heart disease with heart failure; I50.9 Heart failure, unspecified; N28.9 Disorder of kidney and ureter, unspecified; K21.9 Gastro-esophageal reflux disease without esophagitis; E78.00 Pure hypercholesterolemia, unspecified; E11.9 Type 2 diabetes mellitus without complications; Z79.02 Long term (current) use of antithrombotics/antiplatelets; Z79.899 Other long term (current) drug therapy; Z87.891 Personal history of nicotine dependence
CPT/HCPCS: 36415; 51701; 80053; 81001; 85025; 96374; 99283; C9113

== ENCOUNTER → 2020-06-30 | Outpatient (CLI) | payer MEDICARE, MEDICAID ==
--- NOTE | 2020-06-30 10:41 | ST Modified Barium Swallow ---
Recommendation - Recommendations Recommendations: Recommend universal aspiration precautions, no straws. Mechanical soft solids due to dentition, thin liquids. Medical Diagnoses - Medical Diagnoses Medical Diagnosis Description & ICD-10 Code(s): R13.11, R13.10 dysphagia Other Medical Diagnoses/Co-Morbidities: per patient report: possible CVA (patient unable to state when or definitively), reflux - ICD-10 Tx Diagnosis Coding (1) Dysphagia ICD-10 Code(s): R13.10 - DYSPHAGIA, UNSPECIFIED ST Modified Barium Swallow - General Date: 06/30/20 Date of Onset: 06/30/20 - patient unable to give date of onset Reason for Referral: s/s of aspiration - History -: Medical - Patient arrived with transport from SNF, limited medical history supplied. Patient had some difficulty answering questions, unsure how reliable patient's responses were. Patient initially stated she did not have difficulty swallowing, but then stated that pills seem to "get stuck" at times. Patient does report that she has reflux, and that she has chopped meats due to dentition. Medications: medication list not available Allergies: none reported by patient - Functional Status Prior Functional Status: INDEPENDENT: feeding Current Functional Limitations: feeding - globus - Subjective Patient/caregiver goal(s): r/o aspiration Cognitive-Linguistic Function: Functional Speech Intelligibility: Moderately dysarthric Current Nutritional Means: PO Current PO diet: Mechanical - cut Current symptoms: c/o Globus sensation Pain: Patient reports, 0/5 - Objective Assessment: Upright, Left Lateral - Food Trials Used Food trials used: Thin liquids, Pureed, Regular The patient: Was Able to Self Feed - Oral-Motor Skills Dentition: Edentulous Velo-pharyngeal function: Unremarkable Laryngeal Function: clear voicing - Assessment Oral prep: Normal Labial closure: Adequate Leakage: None Mastication: Lengthy Oral stage: Normal for this Procedure - Pharyngeal Stage Initiation of Pharyngeal Stage Reflex: Normal Decreased laryngeal elevation: No Reduced Velopharyngeal Closure: no Reduced pressure generation: No reduced tongue-based retraction: No Pre-swallow pooling in valleculae: Mild Pre-Swallow pooling in pyriforms: None Reduced Thyro-Hyoid approximation: Yes - mild Reduced epiglottic excursion: No Reduced pharyngeal peristalsis/contraction: No Post-swallow residulas vallecular: Mild Post-Swallow residuals in pyriforms: None - Fall Risk Assessment Medications/Conditions that increase fall risks include: Antidepressants, sedatives, anti-arrhythmic, diuretic, benzodiazipenes, neuroleptics. BP regulation problems, cardiac problems, balance or gait deficits, neurological problems. Is patient considered at risk for falls: yes Fall Risk Actions Taken: No action needed - Behavioral Observations During evaluation process patient: was cooperative - Treatment / Educational Needs: Treatment/Education Needs: Treatment consisted of patient education on the role of the Speech Pathologist. Patient's plan of care and golas were communicated as well as scheduling and attendance policies. Recommendations for initial home program were shared. Patient demonstrated understanding and verbalized agreement. - Impression/Summary Laryngeal Penetration: Yes - patient demonstrated consistent penetration of thin liquids via cup and straw. Deep penetration seen x1 to the level of the vocal folds with straw sip of water, no aspiration observed, no cough reaction to penetration Tracheal Aspiration: no Patient presents with: Normal swallow at eval Risk of Aspiration: Mild Evaluation and Findings: Patient demonstrated swallowing generally within normal limits. There was consistent penetration of thin liquids due to mild premature spillage, no aspiration seen, penetration was deep with straw sips. No significant residuals in pharynx after the swallow. - Recommendations Solid diet recommendations: Mechanical Soft Liquid Diet Modification: Thin Strict aspiration precautions: Yes Pt/Family education and followup with MD: Yes Dysphagia therapy with DIETETIC ASSISTANT: f/u with current thera. Recommended techniques: Fully Upright During Meal, Small Bites and Sips - no straws Information, Precautions and Recommendations: Patient (Written), Patient (Verbal) - Time Total Time: 30 - Plan of Care Strategies to optimize patient understanding include:: ongoing assessment of educational needs, implementation of educational strategies, and re-education. - - -: Thank you for the opportunity to work with this patient and his/her family. Should you have any questions about this patient's plan or progress, I can be reached at [phone].
--- NOTE | 2020-06-30 10:47 | RADIOLOGY REPORT (SQ) ---
EXAM DESCRIPTION: COOKIE SWALLOW IMAGES COMPLETED DATE/TIME: 06/30/2020 9:28 am REASON FOR STUDY: R13.11 DYSPHAGIA, ORAL PHASE R13.11 DYSPHAGIA, ORAL PHASE COMPARISON: None. TECHNIQUE: Under fluoroscopic guidance, patient ingested multiple consistencies for cookie swallow. Esophagram performed with patient in supine position using thin barium. Fluoroscopic spot images and routine radiographic images acquired and stored on PACS. 12 MM BARIUM TABLET GIVEN: Barium tablet passed through the esophagus into a small hiatal hernia with out delay. Videofluoroscopic swallowing examination was performed in conjunction with speech pathology. Videofl uoroscopic imaging was obtained and reviewed. Esophagram was performed in supine position with patient drinking thin barium. RADIATION DOSE: 5.44 minutes 10 images saved to PACS. LIMITATIONS: None. FLUOROSCOPY TIME: 5.44 minutes 10 images saved to PACS. FINDINGS: NEUROMUSCULAR COORDINATION OF SWALLOW: Normal. No aspiration. ESOPHAGEAL MOTILITY: Marked tertiary contractions in the distal esophagus. ESOPHAGEAL MUCOSA: Normal mucosa without masses or ulceration. GASTRO-ESOPHAGEAL JUNCTION: Small hiatal hernia is present. Marked gastroesophageal reflux demonstra sg. NON-GI TRACT STRUCTURES: No significant finding. OTHER: No other significant finding. The patient was brought into the fluoro room and placed upright on a modified barium swallow chair. The patient was then given multiple consistencies mixed with barium to swallow under live fluoroscopi c video guidance. According to the Speech Pathologist there was deep laryngeal penetration with thin barium. No aspiration identified. All other consistencies were swallowed without incident. Please refer to the speech pathology report for further details. IMPRESSION: COOKIE SWALLOWS DEMONSTRATES LARYNGEAL PENETRATION WITHOUT ASPIRATION WITH THIN BARIUM. PLEASE REFER TO THE SPEECH PATHOLOGY REPORT FOR FURTHER DETAILS AND RECOMMENDATIONS. ESOPHAGRAM DEMONSTRATES MARKED TERTIARY CONTRACTIONS WITH SMALL HIATAL HERNIA AND MARKED GASTROESOPHA GEAL REFLUX. COMMENT: None Quality ID [id number]: Final reports for procedures using fluoroscopy that document radiation exposure jim claude, or exposure time and number of fluorographic images (if radiation exposure indices are not avail able) None TECHNICAL DOCUMENTATION: JOB ID: [id number] 2010 [employer]- All Rights Reserved Reading location - IP/workstation name: [email or web address] [id number]
== END ==
LOC: RAD 07:41
PROVIDERS: ATTEND Family Medicine
DX: R13.11 Dysphagia, oral phase (principal)
CPT/HCPCS: 74230

== ENCOUNTER 2020-07-05 15:43 | Emergency (ER) | payer MEDICARE, MEDICAID ==
[2020-07-05 16:33] LABS: ABSOLUTE EOSINOPHILS # (AUTO) 0.1 10^3/uL (0.0-0.6); ABSOLUTE LYMPHOCYTES (AUTO) 1.4 10^3/uL (0.5-4.7); ABSOLUTE MONOCYTES (AUTO) 0.7 10^3/uL (0.1-1.4); ABSOLUTE NEUT (AUTO) 7.5 10^3/uL (1.7-8.2); BASOPHILS % (AUTO) 0.5 % (0-2); EOSINOPHILS % (AUTO) 1.5 % (0-6); HEMATOCRIT 36.9 % (36.0-47.0); HEMOGLOBIN 12.1 g/dL (12.0-15.5); LYMPHOCYTES % (AUTO) 14.2 % (13-45); MEAN CORPUSCULAR HEMOGLOBIN 29.3 pg (27.0-33.4); MEAN CORPUSCULAR HGB CONC 32.7 g/dL (32.0-36.0); MEAN CORPUSCULAR VOLUME 90 fl (80-97); MONOCYTES % (AUTO) 7.1 % (3-13); PLATELET COUNT 287 10^3/uL (150-450); RED BLOOD COUNT 4.12 10^6/uL (3.72-5.28); RED CELL DISTRIBUTION WIDTH 17.6 % (11.5-14.0); SEGMENTED NEUTROPHILS % (AUTO) 76.7 % (42-78); TOTAL CELLS COUNTED % (AUTO) 100 %; WHITE BLOOD COUNT 9.8 10^3/uL (4.0-10.5)
[2020-07-05 16:44] LABS: ANION GAP 12 (5-19); BLOOD UREA NITROGEN 46 mg/dL (7-20); CALCIUM 9.5 mg/dL (8.4-10.2); CARBON DIOXIDE 35 mmol/L (22-30); CHLORIDE 89 mmol/L (98-107); GLUCOSE 289 mg/dL (75-110)
[2020-07-05] MEDS ORDERED: POTASSIUM CHLORIDE 20 MEQ PACKET PO ONE (17:08)
--- NOTE | 2020-07-05 17:38 | RADIOLOGY REPORT (SQ) ---
EXAM DESCRIPTION: CT HEAD WITHOUT IMAGES COMPLETED DATE/TIME: 07/05/2020 5:10 pm REASON FOR STUDY: fall COMPARISON: CT head 08/21/2016 TECHNIQUE: Axial images acquired through the brain without intravenous contrast. Images reviewed wi th bone, brain and subdural windows. Images stored on PACS. All CT scanners at this facility use dose modulation, iterative reconstruction, and/or weight based d osing when appropriate to reduce radiation dose to as low as reasonably achievable (ALARA). [facility]: Dose Right [facility]: CareDose [facility]: Dose Right [facility]: Teradose 4D [facility]: [place] [employer] RADIATION DOSE: CT Rad equipment meets quality standard of care and radiation dose reduction techniq ues were employed. CTDIvol: 53.2 mGy. DLP: 991 mGy-cm.mGy. LIMITATIONS: None. FINDINGS: VENTRICLES: Prominent. CEREBRUM: No masses. No hemorrhage. No midline shift. Areas of low density in the white matter mos t likely due to chronic micro-vascular ischemic change. No evidence for acute infarction. CEREBELLUM: No masses. No hemorrhage. No alteration of density. No evidence for acute infarction. EXTRAAXIAL SPACES: Age-related involutional change. No fluid collections. No masses. ORBITS AND GLOBE: No intra- or extraconal masses. Normal contour of globe without masses. CALVARIUM: No fracture. PARANASAL SINUSES: No fluid or mucosal thickening. SOFT TISSUES: There is stranding and hyperdensity in the soft tissues over the left posterior parieta l region. OTHER: No other significant finding. IMPRESSION: No acute intracranial hemorrhage, mass effect, or midline shift. Left posterior parietal scalp contusion without underlying fracture. CHRONIC CHANGES OF ATROPHY AND MICROVASCULAR ISCHEMIA. EVIDENCE OF ACUTE STROKE: NO. TECHNICAL DOCUMENTATION: JOB ID: [id number] Quality ID # [id number]: Final reports with documentation of one or more dose reduction techniques (e.g., Au tomated exposure control, adjustment of the mA and/or kV according to patient size, use of iterative reconstruction technique) 2010 [email or web address]- All Rights Reserved Reading location - IP/workstation name: [email or web address]
--- NOTE | 2020-07-05 17:46 | ER Document Report ---
ED General - General Chief Complaint: Head Injury Stated Complaint: FALL/HEAD INJURY Time Seen by Provider: 07/05/20 15:49 Primary Care Provider: YOBANY LINO MD [Primary Care Provider] - Follow up as needed TRAVEL OUTSIDE OF THE [place] IN LAST 30 DAYS: No - HPI Notes: Patient is a 75-year-old female with a past medical history of CKD who presents after a head injury. [facility]. She states that she was getting up from the bathroom to go back into her chair and became dizzy and hit her head on the wall. She denies loss of consciousness. Patient states she falls a lot. She is not currently dizzy. Patient denies any neck pain or back pain. She states that she has pain at the back of her head. She denies any chest pain. She states that she feels well. She is not on warfarin. - Related Data Allergies/Adverse Reactions: oxycodone HCl [From Percocet] Allergy (Verified 10/22/19 09:03) itching Past Medical History - General Information source: Patient, Transfer Record - Social History Smoking Status: Never Smoker Chew tobacco use (# tins/day): No Drug Abuse: None Family History: Reviewed & Not Pertinent - Past Medical History Cardiac Medical History: Reports: Hx Congestive Heart Failure, Hx Hypercholesterolemia, Hx Hypertension Denies: Hx Atrial Fibrillation Pulmonary Medical History: Denies: Hx Asthma, Hx COPD Neurological Medical History: Denies: Hx Migraine, Hx Seizures Endocrine Medical History: Reports: Hx Diabetes Mellitus Type 2. Denies: Hx Diabetes Mellitus Type 1, Hx Hyperthyroidism, Hx Hypothyroidism Renal/ Medical History: Reports: Hx Renal Insufficiency GI Medical History: Reports: Hx Gastroesophageal Reflux Disease. Denies: Hx Cirrhosis, Hx Crohn's Disease, Hx Hepatitis, Hx Ulcerative Colitis Musculoskeletal Medical History: Denies Hx Arthritis, Denies Hx Fibromyalgia Skin Medical History: Denies Hx Eczema, Denies Hx Psoriasis Infectious Medical History: Denies: Hx C-Diff, Hx Hepatitis, Hx MRSA Past Surgical History: Reports: Hx Cholecystectomy, Hx Hysterectomy, Other - Laser eye treatments - Immunizations Hx Diphtheria, Pertussis, Tetanus Vaccination: Yes Review of Systems - Review of Systems Notes: CONSTITUTIONAL: No fever, fatigue or weight loss. SKIN: No rash. EYES: No recent vision problems or eye pain. CARDIOVASCULAR: No chest pain or edema. RESPIRATORY: No cough, shortness of breath, congestion, or wheezing. GASTROINTESTINAL: No abdominal pain, nausea, vomiting, bloody stools or diarrhea. GENITOURINARY: No dysuria. Positive for increased urination. MUSCULOSKELETAL: No joint pain or swelling. Positive for posterior head pain. NEUROLOGIC: No seizures. No headache, focal weakness or sensory changes. HEMATOLOGIC: No unusual bruising or bleeding. PSYCHIATRIC: No depression or anxiety. Physical Exam - Vital signs Vitals: Temp Pulse Resp BP Pulse Ox 98.2 F 75 18 125/65 96 07/05/20 15:50 07/05/20 15:50 07/05/20 15:50 07/05/20 15:50 07/05/20 15:50 - Notes Notes: VITAL SIGNS: Within normal limits. GENERAL: No acute distress, non-toxic appearance. HEAD: Contusion to posterior scalp. No active bleeding. No lacerations. EYES: conjunctiva normal, no discharge. EARS: Hearing grossly intact. NOSE: Normal. NECK: Normal range of motion, no tenderness, supple, no lymphadenopathy, No adenopathy, no JVD. No posterior cervical tenderness. CHEST: Clear breath sounds bilaterally. No wheezes, rales, or rhonchi. CARDIAC: Regular rate and rhythm. S1 and S2, without murmurs, gallops, or rubs. VASCULAR: No Edema. Peripheral pulses normal and equal in all extremities. ABDOMEN: Normal and soft with no tenderness GENITOURINARY: Normal, No tenderness MUSCULOSKELETAL: Good range of motion of all major joints. Extremities without clubbing, cyanosis or edema. No posterior spinal tenderness. NEUROLOGICAL: Alert and oriented x 3. No focal sensory or strength deficits. Follows commands appropriately. PSYCHIATRIC: Normal Affect, judgement and mood. SKIN: Normal appearance with no rashes or lesions. Course - Re-evaluation Re-evalutation: 07/05/20 17:46 Patient states she was dizzy before she fell. I will obtain lab work. Patient has a low potassium. I will follow up with a magnesium. Patient will be given oral potassium. Her CT does not show any intracranial hemorrhage. We will obtain a urinalysis. Likely patient will be discharged back to the [facility]. She is at her normal baseline. Patient has evidence of a UTI. Her creatinine is better than previous. She will be given Rocephin here and Keflex at discharge. residential was instructed to repeat her potassium. Patient states she is ready to go back to the [facility]. She states she feels well. She was given strict return precautions. 07/06/20 00:54 - Vital Signs Vital signs: Temp Pulse Resp BP Pulse Ox 99.1 F 87 18 124/63 97 07/05/20 23:40 07/05/20 23:40 07/05/20 23:40 07/05/20 23:40 07/05/20 23:40 - Laboratory Result Diagrams: 07/05/20 16:22 07/05/20 16:22 Laboratory results interpreted by me: 07/05/20 07/05/20 07/05/20 16:22 16:22 18:04 RDW 17.6 H Sodium 135.9 L Potassium 3.0 L* Chloride 89 L Carbon Dioxide 35 H BUN 46 H Creatinine 2.18 H Est GFR ( Amer) 27 L Est GFR (MDRD) Non-Af 22 L Glucose 289 H Ur Leukocyte Esterase SMALL H - Diagnostic Test Radiology reviewed: Image reviewed, Reports reviewed - EKG Interpretation by Me EKG shows normal: Sinus rhythm Rate: Normal Rhythm: NSR When compared to previous EKG there are: No significant change Additional EKG results interpreted by me: 07/05/20 19:28 Sinus rhythm at a rate of 81. QTc 469. No acute ST changes. EKG is similar to previous. Discharge - Discharge Clinical Impression: Hypokalemia Head injury Qualifiers: Encounter type: initial encounter Qualified Code(s): S09.90XA - Unspecified injury of head, initial encounter Fall Qualifiers: Encounter type: initial encounter Qualified Code(s): W19.XXXA - Unspecified fall, initial encounter UTI (urinary tract infection) Qualifiers: Urinary tract infection type: site unspecified Hematuria presence: without hematuria Qualified Code(s): N39.0 - Urinary tract infection, site not specified Condition: Stable Disposition: HOME, SELF-CARE Instructions: Urinary Tract Infection ([facility]) Additional Instructions: You have evidence of low potassium and a urinary tract infection. You were given potassium in the ER. Please have the [facility]iary recheck your potassium tomorrow. Take your antibiotics as prescribed. Please return to the ER for any nausea, vomiting, dizziness, any other symptoms. Prescriptions: Cephalexin Monohydrate [Keflex 500 mg Capsule] 500 mg PO BID 7 Days #14 capsule Referrals: YOBANY LINO MD [Primary Care Provider] - Follow up as needed
[2020-07-05 18:23] LABS: APPEARANCE,URINE SLIGHTLY-CLOUDY; BILIRUBIN,URINE NEGATIVE (NEGATIVE); COLOR,URINE YELLOW; GLUCOSE, URINE NEGATIVE (NEGATIVE); KETONES,URINE NEGATIVE (NEGATIVE); LEUKOCYTE ESTERASE,URINE SMALL (NEGATIVE); NITRITE,URINE NEGATIVE (NEGATIVE); PROTEIN,URINE NEGATIVE (NEGATIVE); URINE SPECIFIC GRAVITY 1.006; UROBILINOGEN,URINE NEGATIVE mg/dL (<2.0)
[2020-07-05] MEDS ORDERED: CEFTRIAXONE INJ 1000 MG VIAL IM ONE (18:30)
[2020-07-05] MEDS ORDERED: LIDOCAINE 1% INJ-PF (10 MG/ML) 30 ML SDV ONE (19:37)
--- NOTE | 2020-07-05 20:18 | EKG REPORT ---
SEVERITY:- NORMAL ECG - SINUS RHYTHM : Confirmed by: Vinicius Santos MD 05-Jul-2020 20:16:50
[2020-07-05 23:42] VITALS: BP 124/63
== END 2020-07-05 23:42 | disposition home or self-care (01) ==
LOC: ER 15:43
DX: S00.03XA Contusion of scalp, initial encounter (principal); R51.9 Headache, unspecified; W19.XXXA Unspecified fall, initial encounter; W22.01XA Walked into wall, initial encounter; Y93.89 Activity, other specified; N39.0 Urinary tract infection, site not specified; E87.6 Hypokalemia; I10 Essential (primary) hypertension; E11.9 Type 2 diabetes mellitus without complications; Z88.6 Allergy status to analgesic agent; Z88.5 Allergy status to narcotic agent
CPT/HCPCS: 93005; 99285; 96372; 36415; 87086; 83735; 85025; 87088; 80048; 81001; 84484; 87186; 70450; 93010; J3490 ×2; J0696